=== PATIENT | female | born 1960 | race Caucasian/White ===

== ENCOUNTER 2019-10-21 15:38 | Emergency (ER) | payer OTHER, SELFPAY | END 2019-10-21 15:40 | disposition left against medical advice (07) | PROVIDERS: Emergency Provider Internal Medicine Hematology & Oncology | DX: Z53.21 Procedure and treatment not carried out due to patient leaving prior to being seen by health care provider (principal) | CPT/HCPCS: 99199 ==

== ENCOUNTER 2022-09-24 14:51 | Emergency (ER) | payer MEDICARE, SELFPAY ==
--- NOTE | ~2022-09-24 | XR_ITS ---
EXAMINATION: XR chest 2V DATE: 09/24/2022 15:14 INDICATION: Cough. TECHNIQUE: Frontal and lateral views of the chest were obtained. COMPARISON: Chest 2 views 08/02/2006 FINDINGS: There is mild scarring at the lung apices. No pleural effusion or pneumothorax. The heart s ize is normal. There are prominent paracardial fat pads. IMPRESSION: 1. Mild scarring at the lung apices. Reviewed, dictated and finalized at location A.
--- NOTE | 2022-09-24 14:56 | ED.URI ---
HPI - URI/Sore Throat General Chief Complaint: Upper Respiratory Infection Stated Complaint: Cough Source: patient and RN notes reviewed History of Present Illness HPI Narrative: 62 yo F presents to urgent care with complaints of cough, congestion, PERALTA, and intermittent sore throat for the last 3 days. Pt reports chills. States her cough is much worse at nighttime when she lies down. Denies any fevers, ear pain, vomiting, or chest pain. Pt is also reporting green stools for the last few days. Pt has taken Tylenol at home. Related Data Home Medications Medication Instructions Recorded Confirmed alprazolam 1 mg tablet 1 mg PO TID 04/24/19 09/24/22 dicyclomine 20 mg tablet 20 mg PO TID 04/24/19 09/24/22 aripiprazole 20 mg tablet 20 mg PO DAILY 09/24/22 09/24/22 atorvastatin 20 mg tablet 20 mg PO DAILY 09/24/22 09/24/22 bupropion HCl 300 mg 24 hr tablet, 300 mg PO DAILY 09/24/22 09/24/22 extended release lisinopril 10 mg tablet 10 mg PO DAILY 09/24/22 09/24/22 oxcarbazepine 150 mg tablet mg 09/24/22 Allergies Allergy/AdvReac Type Severity Reaction Status Date / Time vancomycin Allergy Unknown SWELLED Verified 09/24/22 15:01 UP tramadol AdvReac Unknown Itching Verified 09/24/22 15:01 Review of Systems Review of Systems: Pertinent positives and pertinent negatives per HPI. PMFSH Comments At the time of my signature, I reviewed and agree with the nursing past medical, surgical, social, and family history. There is no relevant family history pertinent to the patient complaint. Exam Narrative: GENERAL: This is a well-nourished, well-developed patient, in no apparent distress. HEAD: normocephalic, atraumatic. EYES: Sclera clear/white. Vision is grossly intact. EARS: External ears normal, auditory canals clear and without drainage, TMs normal without perforation. Hearing grossly intact. NOSE: External nose normal with no obvious nasal discharge, nares without redness, no rhinorrhea. THROAT: Mucous membranes moist, posterior pharynx clear. NECK: Neck supple, non-tender without lymphadenopathy, masses or thyromegaly. CARDIOVASCULAR: Regular rate and rhythm without murmurs, gallops, or rubs. RESPIRATORY: Mild rhonchi bilaterally. GASTROINTESTINAL: Abdomen soft, non-tender, nondistended. Bowel sounds are active. No hepato-splenomegaly, or palpable masses. No guarding. SKIN: warm, intact with no suspicious lesions or rash, good texture and turgor. NEURO: awake, alert, and oriented to person, place and time. There were no obvious focal neurologic abnormalities. Course Course Level of Care: Express Care Visit Vital Signs Vital signs: Vital Signs Temperature 97 F L 09/24/22 15:01 Pulse Rate 92 09/24/22 15:01 Respiratory Rate 18 09/24/22 15:01 Blood Pressure 159/76 H 09/24/22 15:01 Pulse Oximetry 98 09/24/22 15:01 Oxygen Delivery Room Air 09/24/22 15:01 Temperature 97 F L 09/24/22 15:05 Pulse Rate 92 09/24/22 15:05 Respiratory Rate 18 09/24/22 15:05 Blood Pressure 159/76 H 09/24/22 15:05 Pulse Oximetry 98 09/24/22 15:05 Oxygen Delivery Room Air 09/24/22 15:05 Reviewed MDM - URI/Sore Throat MDM Narrative Medical decision making narrative: Take steroids as directed. May use the inhaler every 4-6 hours as needed for coughing. Increase fluids at home. Avoid any and all smoke. May use a humidifier in the bedroom. Increase your Vitamin C. Follow-up with personal physician in 2-5 days. Differential Diagnosis Differential diagnosis: Likely upper respiratory infection, bronchitis and other (pna) Imaging Data Radiologist's impression: [place] [id number] [id number] XRay Report Signed Patient: Linda Cates : 1960 MR#: [id number] Age/Sex: 62 / F Acct:[id number] Loc: [facility]? ? ADM Date: 09/24/22Attending Dr: Ordering Physician: Elizabeth Kaur APRN Date of Service: 09/24/22
[2022-09-24 15:01] VITALS: BP 159/76; PULSE 92; RESP 18; TEMP 36.1; O2SAT 98
[2022-09-24 15:05] VITALS: BP 159/76; PULSE 92; RESP 18; TEMP 36.1; O2SAT 98
== END 2022-09-24 15:39 | disposition home or self-care (01) ==
PROVIDERS: Emergency Provider Nurse Practitioner Family; PCP Hospitalist
DX: J40 Bronchitis, not specified as acute or chronic (principal)
CPT/HCPCS: 71046; 99213; G0463

== ENCOUNTER 2023-02-26 12:54 | Emergency (ER) | payer MEDICARE, SELFPAY ==
[2023-02-26 13:01] VITALS: BP 134/93; PULSE 103; RESP 18; TEMP 36.6; O2SAT 96
--- NOTE | 2023-02-26 13:05 | ED.GENADULT ---
HPI - General Adult General Chief complaint: Extremity Injury, Upper Stated complaint: Right Shoulder Injury Time Seen by Provider: 02/26/23 13:05 Source: patient Mode of arrival: ambulatory Limitations: no limitations History of Present Illness HPI narrative: 63 yo F presents with C/o R shoulder pain for several days. Has tried ibuprofen, tylenol, ice and heat with no relief. Denies injury but states that she lifts a lot of things while cleaning at home . Pain worse with movement. No other complaints. Denies numbness/tingling, weakness. all systems reviewed and negative except as noted above. Related Data Home Medications Medication Instructions Recorded Confirmed alprazolam 1 mg tablet 1 mg PO TID 04/24/19 02/26/23 aripiprazole 20 mg tablet 20 mg PO DAILY 09/24/22 02/26/23 atorvastatin 20 mg tablet 20 mg PO DAILY 09/24/22 02/26/23 bupropion HCl 300 mg 24 hr tablet, 300 mg PO DAILY 09/24/22 02/26/23 extended release lisinopril 10 mg tablet 10 mg PO DAILY 09/24/22 02/26/23 oxcarbazepine 150 mg tablet 150 mg PO BID 09/24/22 02/26/23 ergocalciferol (vitamin D2) 1,250 1,250 mcg PO WEEKLY 02/26/23 02/26/23 mcg (50,000 unit) capsule Allergies Allergy/AdvReac Type Severity Reaction Status Date / Time vancomycin Allergy Unknown SWELLED Verified 02/26/23 13:06 UP tramadol AdvReac Unknown Itching Verified 02/26/23 13:06 Review of Systems Review of Systems: CONSTITUTIONAL: Denies fever, chills, or sweats. EYES: Denies visual changes, redness, or discharge. ENT: Denies rhinorrhea, congestion, sore throat, or otalgia. CARDIOVASCULAR: Denies chest pain, palpitations, or edema. RESPIRATORY: Denies cough or dyspnea. GASTROINTESTINAL: Denies abdominal pain, nausea, vomiting, or diarrhea. GENITOURINARY: Denies dysuria or hematuria. SKIN: Denies rash or itching. MUSCULOSKELETAL: Denies back pain or myalgia. Reports right shoulder pain. NEUROLOGIC: Denies headache, numbness, or weakness. PSYCHIATRIC: Denies anxiety or depression. All other systems reviewed are negative, except as documented in HPI. PMFSH Comments At time of signature, agree with nursing past medical, surgical, social and family history. There is no relevant family history pertinent to the presenting complaint. Exam Narrative: GENERAL: This is a well-nourished, well-developed patient, in no apparent distress. HEAD: normocephalic, atraumatic. EYES: PERRL. Sclera clear/white. Vision is grossly intact. EARS: External ears normal NOSE: External nose normal NECK: Neck supple, non-tender without lymphadenopathy, masses or thyromegaly. CARDIOVASCULAR: Regular rate and rhythm without murmurs, gallops, or rubs. RESPIRATORY: Clear to auscultation. Breath sounds equal bilaterally. No wheezes, rales, or rhonchi. SKIN: warm, Dry, intact with no suspicious lesions or rash, good texture and turgor. NEURO: awake, alert, and oriented to person, place and time. There were no obvious focal neurologic abnormalities. EXTREMITIES: No joint tenderness, effusion, or edema noted. normal ROM to R shoulder without tenderness. neg drop arm test. strength RUE 5/5 BACK: no midline tenderness. tenderness to R trapezius/rhomoboid. Course Course Level of Care: Express Care Visit Vital Signs Vital signs: Vital Signs Temperature 36.6 C 02/26/23 13:01 Pulse Rate 103 H 02/26/23 13:01 Respiratory Rate 18 02/26/23 13:01 Blood Pressure 134/93 H 02/26/23 13:01 Pulse Oximetry 96 02/26/23 13:01 Oxygen Delivery Room Air 02/26/23 13:01 Temperature 36.6 C 02/26/23 13:01 Pulse Rate 103 H 02/26/23 13:01 Respiratory Rate 18 02/26/23 13:01 Blood Pressure 134/93 H 02/26/23 13:01 Pulse Oximetry 96 02/26/23 13:01 Oxygen Delivery Room Air 02/26/23 13:01 Reviewed Medical Decision Making MDM Narrative Medical decision making narrative: Patient is aware of diagnosis, understands and agrees to treatment plan. Anticipatory guidance g
== END 2023-02-26 13:16 | disposition home or self-care (01) ==
PROVIDERS: Emergency Provider Nurse Practitioner Family; PCP Hospitalist
DX: S46.811A Strain of other muscles, fascia and tendons at shoulder and upper arm level, right arm, initial encounter (principal); X58.XXXA Exposure to other specified factors, initial encounter
CPT/HCPCS: 99213; G0463

== ENCOUNTER 2023-03-23 10:47 | Emergency (ER) | payer MEDICARE, SELFPAY ==
--- NOTE | ~2023-03-23 | XR_ITS ---
EXAMINATION: XR chest 2V DATE: 03/23/2023 11:37 INDICATION: Cough. Right posterior chest pain. TECHNIQUE: Frontal and lateral views of the chest were obtained. COMPARISON: Chest 2 views 09/24/2022 FINDINGS: There is mild atelectasis in right lower lung zone. No pleural effusion or pneumothorax. Th e heart size is normal. IMPRESSION: 1. Mild atelectasis in right lower lung zone. Reviewed, dictated and finalized at location A. [employer]
[2023-03-23 10:52] VITALS: BP 155/65; PULSE 91; RESP 20; TEMP 36.2; O2SAT 97
--- NOTE | 2023-03-23 10:54 | ED.BACK ---
HPI - Back Pain/Injury General Chief Complaint: Back Pain/Injury Stated Complaint: Back Pain Source: patient, RN notes reviewed and old records reviewed History of Present Illness HPI Narrative: 63 yo F presents to urgent care with complaints of bilateral mid and upper back pain since yesterday. Pt states the pain has progressed over the last day or so. Pt reports an ongoing cough which has progressed in severity recently. States worsening pain with deep inhalation or coughing. Denies any fevers, chills, chest pain, vomiting, or back injury. Denies any leg pain or swelling. Pt has been alternating ibuprofen and Tyelenol at home without relief. Related Data Home Medications Medication Instructions Recorded Confirmed alprazolam 1 mg tablet 1 mg PO TID 04/24/19 02/26/23 aripiprazole 20 mg tablet 20 mg PO DAILY 09/24/22 02/26/23 atorvastatin 20 mg tablet 20 mg PO DAILY 09/24/22 02/26/23 bupropion HCl 300 mg 24 hr tablet, 300 mg PO DAILY 09/24/22 02/26/23 extended release lisinopril 10 mg tablet 10 mg PO DAILY 09/24/22 02/26/23 oxcarbazepine 150 mg tablet 150 mg PO BID 09/24/22 02/26/23 ergocalciferol (vitamin D2) 1,250 1,250 mcg PO WEEKLY 02/26/23 02/26/23 mcg (50,000 unit) capsule Allergies Allergy/AdvReac Type Severity Reaction Status Date / Time vancomycin Allergy Unknown SWELLED Verified 02/26/23 13:06 UP tramadol AdvReac Unknown Itching Verified 02/26/23 13:06 Review of Systems Review of Systems: CONSTITUTIONAL: Denies fever, chills, or sweats. EYES: Denies visual changes, redness, or discharge. ENT: Denies otalgia and sore throat CARDIOVASCULAR: Denies chest pain, palpitations, or edema. RESPIRATORY: Denies dyspnea. GASTROINTESTINAL: Denies abdominal pain, nausea, vomiting, or diarrhea. GENITOURINARY: Denies dysuria or hematuria. SKIN: Denies rash or itching. NEUROLOGIC: Denies headache, numbness, or weakness. Pertinent positives per HPI. PMFSH Comments At the time of my signature, I reviewed and agree with the nursing past medical, surgical, social, and family history. There is no relevant family history pertinent to the patient complaint. Exam Narrative: GENERAL: This is a well-nourished, well-developed patient, in no apparent distress. HEAD: normocephalic, atraumatic. EYES: Sclera clear/white. Vision is grossly intact. EARS: External ears normal, auditory canals clear and without drainage, TMs normal without perforation. Hearing grossly intact. NOSE: External nose normal with no obvious nasal discharge, nares without redness, no rhinorrhea. THROAT: Mucous membranes moist, posterior pharynx clear. NECK: Neck supple, non-tender without lymphadenopathy, masses or thyromegaly. CARDIOVASCULAR: Regular rate and rhythm without murmurs, gallops, or rubs. RESPIRATORY: Clear to auscultation. Breath sounds equal bilaterally. No wheezes, rales, or rhonchi. GASTROINTESTINAL: Abdomen soft, non-tender, nondistended. Bowel sounds are active. No hepato-splenomegaly, or palpable masses. No guarding. SKIN: warm, intact with no suspicious lesions or rash, good texture and turgor. NEURO: awake, alert, and oriented to person, place and time. There were no obvious focal neurologic abnormalities. EXTREMITIES: No clubbing, cyanosis, or edema. No joint tenderness, effusion, or edema noted. BACK: Nontender without deformity or crepitus. No flank tenderness. Course Course Level of Care: Express Care Visit Vital Signs Vital signs: Vital Signs Temperature 97.2 F L 03/23/23 10:52 Pulse Rate 91 03/23/23 10:52 Respiratory Rate 20 03/23/23 10:52 Blood Pressure 155/65 H 03/23/23 10:52 Pulse Oximetry 97 03/23/23 10:52 Oxygen Delivery Room Air 03/23/23 10:52 Temperature 97.2 F L 03/23/23 10:52 Pulse Rate 91 03/23/23 10:52 Respiratory Rate 20 03/23/23 10:52 Blood Pressure 155/65 H 03/23/23 10:52 Pulse Oximetry 97 03/23/23 10:52 Oxygen Delivery Room Air 03/23/23 10:52 Rev
== END 2023-03-23 12:04 | disposition home or self-care (01) ==
PROVIDERS: Emergency Provider Nurse Practitioner Family; PCP Hospitalist
DX: S29.012A Strain of muscle and tendon of back wall of thorax, initial encounter (principal); X58.XXXA Exposure to other specified factors, initial encounter; I10 Essential (primary) hypertension; F41.9 Anxiety disorder, unspecified
CPT/HCPCS: 71046; 99213; G0463

== ENCOUNTER 2023-04-14 10:51 | Emergency (ER) | payer MEDICARE, SELFPAY ==
--- NOTE | 2023-04-14 10:57 | ED.URI ---
HPI - URI/Sore Throat General Chief Complaint: Upper Respiratory Infection Stated Complaint: cough/chest congestion pain Time Seen by Provider: 04/14/23 11:24 Source: patient and RN notes reviewed Mode of arrival: ambulatory Limitations: no limitations History of Present Illness HPI Narrative: 63-year-old female presents with concern for 2 day history of anterior chest pain, shortness of breath, dry cough. Reports pain radiates down her right arm. She reports shortness of breath with exertion. She reports chronic rhinorrhea. She denies fever, aches, chills, sweats. She reports symptoms are getting worse. MD elicited complaint: cough and other (Chest pain) Related Data Home Medications Medication Instructions Recorded Confirmed alprazolam 1 mg tablet 1 mg PO TID 04/24/19 02/26/23 aripiprazole 20 mg tablet 20 mg PO DAILY 09/24/22 02/26/23 atorvastatin 20 mg tablet 20 mg PO DAILY 09/24/22 02/26/23 bupropion HCl 300 mg 24 hr tablet, 300 mg PO DAILY 09/24/22 02/26/23 extended release lisinopril 10 mg tablet 10 mg PO DAILY 09/24/22 02/26/23 oxcarbazepine 150 mg tablet 150 mg PO BID 09/24/22 02/26/23 ergocalciferol (vitamin D2) 1,250 1,250 mcg PO WEEKLY 02/26/23 02/26/23 mcg (50,000 unit) capsule Allergies Allergy/AdvReac Type Severity Reaction Status Date / Time vancomycin Allergy Unknown SWELLED Verified 02/26/23 13:06 UP tramadol AdvReac Unknown Itching Verified 02/26/23 13:06 Review of Systems Review of Systems: CONSTITUTIONAL: Denies malaise, chills, sweats, or fever. EYES: Denies visual changes, redness, or discharge. ENT: Reports rhinorrhea. Denies congestion, sinus pain, otalgia and sore throat. CARDIOVASCULAR: Report chest pain. Denies palpitations, or edema. RESPIRATORY: Reports dry cough, dyspnea. GASTROINTESTINAL: Denies abdominal pain, vomiting, diarrhea. Reports nausea without vomiting SKIN: Denies rash or itching. MUSCULOSKELETAL: Denies myalgia. NEUROLOGIC: Denies headache. All systems reviewed & are unremarkable except as noted in HPI and below PMFSH Comments At time of signature, agree with nursing past medical, surgical, social and family history. There is no relevant family history pertinent to the presenting complaint Exam Narrative: GENERAL: Nontoxic-appearing, well-nourished, and in no acute distress. Appears uncomfortable HEAD: Normocephalic EYES: PERRLA, conjunctivae clear ENT: Nares clear. Mucous membranes moist NECK: Supple. No lymphadenopathy CHEST: Clear to auscultation, breath sounds equal. No wheezing, rhonchi, rales, or stridor. No respiratory distress, speaks in full sentences. HEART: Regular rate and rhythm. No murmur heard. SKIN: Warm, dry, no rash. NEURO: Alert and oriented x3. PSYCH: Normal mood and affect Course Course Emergency Course: Patient is aware of, understands and agrees to be transferred to the emergency room. Patient is refusing EMS transfer, reports she does not want the extra pill, reports her son will drive her in she will go straight there. She understands risks of not taking EMS transfer. Patient agrees to proceed directly to the emergency department. Portions of this record may have been created with voice recognition software Level of Care: Express Care Visit Vital Signs Vital signs: Reviewed. Transfer Transfered to: [facility]) Transportation: Other (private vehicle) Transfer rationale: Chest pain Accepting physician: Benito HASKINS - URI/Sore Throat [facility] Narrative Medical decision making narrative: Differential diagnosis considered: Acute MN, costochondritis, martin virus, strep pharyngitis, allergic rhinitis, upper respiratory tract infection, sinusitis, rhinosinusitis, nasopharyngitis. viral pharyngitis, otitis media, otitis externa, pneumonia, bronchitis, viral cough syndrome, viral syndrome, and influenza. Exam findings show no acute concerns or changes; patient is non-toxic appearing and is in no distress.
[2023-04-14 11:00] VITALS: BP 152/99; PULSE 92; RESP 18; TEMP 36.8; O2SAT 96
--- NOTE | 2023-04-14 11:27 | ECG_ITS ---
Measurements Intervals [place] Rate: 86 P: 77 OK: 163 QRS: -32 QRSD: 98 T: 75 QT: 364 QTc: 437 Interpretive Statements SINUS RHYTHM POSSIBLE BIATRIAL ENLARGEMENT LEFT AXIS DEVIATION INCOMPLETE RIGHT BUNDLE BRANCH BLOCK BORDERLINE ECG NO PREVIOUS ECG AVAILABLE FOR COMPARISON Electronically Signed On 04-14-2023 16:01:44 RECHECKER by Larry Estrada M.D.
== END 2023-04-14 11:39 | disposition short-term general hospital (02) ==
PROVIDERS: Emergency Provider Nurse Practitioner; PCP Hospitalist
DX: R07.9 Chest pain, unspecified (principal); I45.10 Unspecified right bundle-branch block; I10 Essential (primary) hypertension
CPT/HCPCS: 93005; 99213; G0463

== ENCOUNTER 2023-04-22 14:12 | Emergency (ER) | payer MEDICARE, SELFPAY ==
--- NOTE | 2023-04-22 14:15 | ED.URI ---
HPI - URI/Sore Throat General Chief Complaint: Upper Respiratory Infection Stated Complaint: congestion/cough/right lung pain Time Seen by Provider: 04/22/23 14:15 Source: patient Mode of arrival: ambulatory Limitations: no limitations History of Present Illness HPI Narrative: Patient is a 7-year-old female who presents with over 1 week of cough and congestion. Patient states she has chest wall pain with coughing due to frequent coughing fits. Patient was seen last week and was given steroids with no relief. Denies any fever, chills, nausea, vomiting, diarrhea. Related Data Home Medications Medication Instructions Recorded Confirmed alprazolam 1 mg tablet 1 mg PO TID 04/24/19 02/26/23 aripiprazole 20 mg tablet 20 mg PO DAILY 09/24/22 02/26/23 atorvastatin 20 mg tablet 20 mg PO DAILY 09/24/22 02/26/23 bupropion HCl 300 mg 24 hr tablet, 300 mg PO DAILY 09/24/22 04/22/23 extended release lisinopril 10 mg tablet 10 mg PO DAILY 09/24/22 02/26/23 oxcarbazepine 150 mg tablet 150 mg PO BID 09/24/22 02/26/23 ergocalciferol (vitamin D2) 1,250 1,250 mcg PO WEEKLY 02/26/23 02/26/23 mcg (50,000 unit) capsule Allergies Allergy/AdvReac Type Severity Reaction Status Date / Time vancomycin Allergy Unknown SWELLED Verified 04/22/23 14:29 UP tramadol AdvReac Unknown Itching Verified 04/22/23 14:29 Review of Systems Review of Systems: All systems reviewed & are unremarkable except as noted in HPI and below Constitutional: Constitutional: Denies body ache(s), Denies chills, Denies fatigue, Denies fever(s), Denies headache(s), Denies malaise and Denies weakness Eyes: Eyes: Denies blurry vision, Denies itchy eyes and Denies loss of vision ENT: Denies otalgia, Denies headache(s), Reports nasal congestion, Denies sinus pain and Denies sore throat Cardiovascular: Cardiovascular: Denies chest pain, Denies irregular heart rhythm and Denies dyspnea Respiratory: Respiratory: Reports cough and Denies dyspnea Gastrointestinal: Gastrointestinal: Denies abdominal pain, Denies diarrhea, Denies nausea and Denies vomiting Musculoskeletal: Musculoskeletal: Denies back pain, Denies myalgias and Denies arthralgias Integumentary/Breasts: Skin/Breast: Denies pruritus and Denies rash Neurologic: Denies headache(s), Denies loss of vision and Denies weakness Psychiatric: Psychiatric: Reports no additional psychiatric complaints Endocrine: Endocrine: Denies fatigue Allergic/Immunologic: Allergic/Immunologic: Denies itchy eyes PMFSH Comments At time of signature, agree with nursing past medical, surgical, social and family history. There is no relevant family history pertinent to the presenting complaint. Exam Const: General: cooperative, healthy appearing, comfortable, no acute distress and well nourished Nutritional Appearance: well nourished Orientation/consciousness: patient oriented x3 Limitations: no limitations HENMT: Head: normal to inspection, normocephalic and atraumatic Ears: hearing grossly normal bilaterally, external ears normal, TM's normal bilaterally, EAC's normal and no periauricular adenopathy Face/Nose/Sinus: Normal external nose present, Abnormal mucous membranes and turbinates present erythematous bilateral and diffuse, normal facial exam, sinuses nontender and face symmetric Face and sinus: normal facial exam, sinuses nontender and face symmetric Mouth: Yes Normal oral and palatal mucosa present, Yes lip normal, Yes tongue normal, Yes Normal salivary glands and ducts present, Yes oropharynx normal and Yes moist mucous membranes Teeth and gingiva: dentition normal Throat: posterior oropharynx normal, tonsils normal and uvula midline Eyes: General: appearance normal, both eyes and all related structures Alignment and Position: alignment normal and position normal Periorbital: periorbital findings normal Eyelids: eyelids normal Pupils: Equal, round and reactive pupils present Neck: Neck: normal visual inspecti
[2023-04-22 14:17] VITALS: PULSE 95; RESP 20; TEMP 36.7; O2SAT 97
[2023-04-22 14:53] VITALS: BP 145/90
== END 2023-04-22 15:05 | disposition home or self-care (01) ==
PROVIDERS: Emergency Provider Nurse Practitioner Family; PCP Hospitalist
DX: J06.9 Acute upper respiratory infection, unspecified (principal); Z79.899 Other long term (current) drug therapy
CPT/HCPCS: 99213; G0463

== ENCOUNTER 2024-05-10 16:07 | Emergency (ER) | payer MEDICARE, SELFPAY ==
--- NOTE | ~2024-05-10 | XR_ITS ---
3 VIEWS LUMBAR SPINE Ordering provider: Ashly Garza NP History: . MIDLINE LBP AFTER FALL BACKWARDS . Comparison: April 07, 2019 FINDINGS: VERTEBRAL BODIES: No visible fracture or subluxation. . Degenerative changes of the spine. DISK SPACES: Narrowing of the disc L1-L2. Multilevel facet joint disease. SOFT TISSUES: Atherosclerotic changes of the aorta. IMPRESSION: No acute osseous abnormality lumbar spine. Degenerative disc disease at the level of L1-L2. Reviewed, dictated and finalized at location A. 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 Degenerative disc disease at the lev el of L1-L2.
[2024-05-10 16:17] VITALS: BP 146/55; PULSE 80; RESP 18; TEMP 36.1; O2SAT 97
--- NOTE | 2024-05-10 16:37 | ED.URI ---
HPI - URI/Sore Throat General Chief Complaint: Upper Respiratory Infection Stated Complaint: Fatigue/Sore Throat/Nausea/Fall Injury/Back Time Seen by Provider: 05/10/24 16:37 Source: patient Mode of arrival: ambulatory Limitations: no limitations History of Present Illness HPI Narrative: 64 yo F presents with c/o nasal congestion, headache, sinus pressure, PND, sore throat, cough for approx. 10 days. AFebrile. Also having low backpain starting yesterday. Picked up case of water at [employer] [facility] and legs went out from under her and fell backwards hitting low back. ambulatory with steady gait. no loss or bowel or bladder. taking ibuprofen and tylenol to treat pain. All systems reviewed and negative except as noted above. Related Data Home Medications ?Medication ?Instructions ?Recorded ?Confirmed ?Last Taken ?Type alprazolam 1 mg tablet 1 mg PO TID 04/24/19 04/22/23 Unknown History aripiprazole 20 mg tablet 20 mg PO DAILY 09/24/22 04/22/23 Unknown History atorvastatin 20 mg tablet 20 mg PO DAILY 09/24/22 04/22/23 Unknown History bupropion HCl 300 mg 24 hr tablet, 300 mg PO DAILY 09/24/22 04/22/23 Unknown History extended release lisinopril 10 mg tablet 20 mg PO DAILY 09/24/22 04/22/23 Unknown History ergocalciferol (vitamin D2) 1,250 1,250 mcg PO WEEKLY 02/26/23 04/22/23 Unknown History mcg (50,000 unit) capsule ramelteon 8 mg tablet 8 mg PO DAILY 04/22/23 04/22/23 Unknown History trazodone 100 mg tablet 100 mg PO BID 04/22/23 04/22/23 Unknown History Allergies Allergy/AdvReac Type Severity Reaction Status Date / Time vancomycin Allergy Unknown SWELLED Verified 04/22/23 14:29 UP tramadol AdvReac Unknown Itching Verified 04/22/23 14:29 Review of Systems Review of Systems: CONSTITUTIONAL: Denies fever, chills, or sweats. EYES: Denies visual changes, redness, or discharge. ENT: reports rhinorrhea, congestion, sore throat, sinus congestion and pressure. Denies otalgia. CARDIOVASCULAR: Denies chest pain, palpitations, or edema. RESPIRATORY: reports cough. Denies dyspnea. GASTROINTESTINAL: Denies abdominal pain, nausea, vomiting, or diarrhea. GENITOURINARY: Denies dysuria or hematuria. SKIN: Denies rash or itching. MUSCULOSKELETAL: Reports low back pain. Denies joint pain, or myalgia. NEUROLOGIC: Denies headache, numbness, or weakness. PSYCHIATRIC: Denies anxiety or depression. All other systems reviewed are negative, except as documented in HPI. PMFSH Comments At time of signature, agree with nursing past medical, surgical, social and family history. There is no relevant family history pertinent to the presenting complaint. Exam Narrative: GENERAL: This is a well-nourished, well-developed patient, in no apparent distress. HEAD: normocephalic, atraumatic. EYES: PERRL. Sclera clear/white. Vision is grossly intact. EARS: External ears normal, auditory canals clear and without drainage, TMs normal without perforation. Hearing grossly intact. NOSE: External nose normal with moderate congestion, purulent nasal drainage, erythema and swelling to bilateral nares. Frontal maxillary sinus tenderness on palpation. THROAT: Mucous membranes moist, Erythematous with postnasal drainage NECK: Neck supple, non-tender without lymphadenopathy, masses or thyromegaly. CARDIOVASCULAR: Regular rate and rhythm without murmurs, gallops, or rubs. RESPIRATORY: Clear to auscultation. Breath sounds equal bilaterally. No wheezes, rales, or rhonchi. SKIN: warm, Dry, intact with no suspicious lesions or rash, good texture and turgor. NEURO: awake, alert, and oriented to person, place and time. There were no obvious focal neurologic abnormalities. EXTREMITIES: No joint tenderness, effusion, or edema noted. BACK: tenderness L3-L5, no deformity, generalized muscular tenderness, spasm Course Course Level of Care: Express Care Visit Vital Signs Vital signs: Vital Signs Temperature 36.1 C L 05/10/24 16:17 Pulse Rate 80 05/10/24 16:17 Respiratory Rate 18 05/10/24 16:17 Blood Pressure 146/55 H 05/10/24 16:17 Pulse Oximetry 97 05/10/24 16:17 Oxygen Delivery Room Air 05/10/24 16:17 Temperature 36.1 C L 05/10/24 16:17 Pulse Rate 80 05/10/24 16:17 Respiratory Rate 18 05/10/24 16:17 Blood Pressure 146/55 H 05/10/24 16:17 Pulse Oximetry 97 05/10/24 16:17 Oxygen Delivery Room Air 05/10/24 16:17 reviewed MDM - URI/Sore Throat MDM Narrative Medical decision making narrative: x-ray lumbar spine negative for fracture. Prescribe Robaxin for muscle spasm. Recommend ibuprofen and Tylenol to treat pain. Recommend ice and heat. Will treat For bacterial sinusitis due to duration of symptoms and exam findings. Lungs clear to auscultation. No respiratory distress noted. Patient is aware of diagnosis, understands and agrees to treatment plan. Anticipatory guidance given. Patient agrees to follow-up as directed and is aware of reasons to seek care at the emergency department. Portions of this record may have been created with voice recognition software Differential Diagnosis Differential diagnosis: Likely upper respiratory infection, sinusitis, viral infection and bronchitis Imaging Data My impression: agree with radiologist Radiologist's impression: 3 VIEWS LUMBAR SPINE Ordering provider: Ashly Garza NP History: . MIDLINE LBP AFTER FALL BACKWARDS . Comparison: April 07, 2019 FINDINGS: VERTEBRAL BODIES: No visible fracture or subluxation. . Degenerative changes of the spine. DISK SPACES: Narrowing of the disc L1-L2. Multilevel facet joint disease. SOFT TISSUES: Atherosclerotic changes of the aorta. IMPRESSION: No acute osseous abnormality lumbar spine. Degenerative disc disease at the level of L1-L2. Discharge Plan Discharge Clinical Impression: Acute bacterial sinusitis, Strain of lumbar region Patient Disposition: Home, Self-Care Condition: Stable Instructions: Antibiotic Form, Sinusitis (ED), Low Back Strain (ED) Additional Instructions: the x-ray of your lumbar spine was negative for fracture. Take medications as prescribed. Methocarbamol is a muscle relaxant may make you drowsy. Do not drive while taking this medication. Alternate between Tylenol and ibuprofen every 4 hours to treat back pain. Alternate between ice and heat. Do light stretching exercises as tolerated. Follow-up with your primary care physician if symptoms are not improving. Patient Language: Macedonian Prescriptions: New benzonatate 200 mg capsule 200 mg PO TID PRN (Reason: cough) Qty: 20 0RF doxycycline hyclate 100 mg capsule 100 mg PO BID 7 Days Qty: 14 0RF prednisone 20 mg tablet 40 mg PO DAILY 5 Days Qty: 10 0RF methocarbamol 750 mg tablet 750 mg PO Q8H PRN (Reason: muscle pain/spasm) Qty: 30 0RF fluticasone propionate [Flonase Allergy Relief] 50 mcg/actuation spray,suspension 1 spray intranasal BID Qty: 16 0RF Rx Instructions: administer into each nostril No Action alprazolam 1 mg Tablet 1 mg PO TID ramelteon 8 mg tablet 8 mg PO DAILY trazodone 100 mg tablet 100 mg PO BID atorvastatin 20 mg tablet 20 mg PO DAILY aripiprazole 20 mg tablet 20 mg PO DAILY bupropion HCl 300 mg tablet extended release 24 hr 300 mg PO DAILY lisinopril 10 mg tablet 20 mg PO DAILY ergocalciferol (vitamin D2) 1,250 mcg (50,000 unit) capsule 1,250 mcg PO WEEKLY Follow-up/Referrals: Grzegorz,MD Martell [Primary Care Provider] - Time of Disposition: 17:23
== END 2024-05-10 17:27 | disposition home or self-care (01) ==
PROVIDERS: Emergency Provider Nurse Practitioner Family; PCP Hospitalist
DX: J01.90 Acute sinusitis, unspecified (principal); S39.012A Strain of muscle, fascia and tendon of lower back, initial encounter; W19.XXXA Unspecified fall, initial encounter
CPT/HCPCS: 72100; 99213; G0463

== ENCOUNTER 2024-07-30 13:42 | Emergency (ER) | payer MEDICARE, SELFPAY ==
--- OUTSIDE RECORDS SUMMARY | 2024-07-30 13:44 | XMS_ITS | Clinical Summary ---
Author Organization [facility] Address [address] [place] [address] Phone Care Team Providers Care Flood Control Engineer Name Role Phone Martell Lantigua MD Primary Care Provider [phone] Allergies Active Allergy Reactions Criticality Noted Date Comments Tramadol Other (see Comments) High 09/21/2018 wired and itchy Acetaminophen-Codeine Itching 02/13/2019 Vancomycin Itching,Swelling High 04/05/2012 Face, mouth Medications ALPRAZolam (XANAX) 1 MG Tablet TAKE ONE TABLET BY MOUTH THREE TIMES A DAY NEEDED ANXIETY PL DO NOT FILL BEFORE 3 15 19 1 9 Active venlafaxine (EFFEXOR) 75 MG Tablet TAKE ONE TABLET BY MOUTH TWO TIMES A DAY 3 9 Active dilTIAZem (CARDIZEM CD) 180 MG CAPSULE SR 24 HR TAKE ONE CAPSULE BY MOUTH DAILY 1 9 Active levothyroxine (SYNTHROID) 25 MCG Tablet Take 25 mcg by mouth daily. 3 9 Active dicyclomine (BENTYL) 20 MG Tablet Take 20 mg by mouth 3 times daily as needed. 8 Active QUEtiapine Fumarate 300 MG Tablet Take 300 mg by mouth daily. 8 Active naloxone HCl (Narcan) 4 MG/0.1ML Liquid 1 [place] by Nasal route as needed for Opioid Reversal (opioid overdose). administer for symptoms of overdose (severe sleepiness, breathing problems, not responsive). Call 911. May use additional dose to repeat 1 spray intranasally in 2-3 minutes if needed. 2 Each 3 Active ibuprofen (MOTRIN) 600 MG Tablet Take 1 Tablet by mouth every 8 hours. 30 Tablet 3 Active Active Problems No known active problems Immunizations Immunization Administration Dates Next Due Influenza Vaccine 01/02/2019 Family History Medical History Relation Name Comments Bladder cancer Father Breast Cancer Maternal Cousin Heart Disease Maternal Grandfather Dementia Mother Hypertension Mother Heart Disease Paternal Grandfather Leukemia/Lymphoma Paternal Grandfather Relation Name Status Comments Father Maternal Cousin Maternal Grandfather Mother Alive Paternal Grandfather Social History Tobacco Use Types Packs/Day Years Used Date Smoking Tobacco: Every Day Cigarettes 0.5 40 Smokeless Tobacco: Never Tobacco Cessation:Ready to Q uit: Yes Alcohol Use Standard Drinks/Week Comments Not Currently 0 (1 standard drink = 0.6 oz pur e alcohol) Comments No Sex and Gender Information Value Date Recorded Sex Assigned at Not on file Legal Sex Female 10:33 PM CDT Gender Identity Not on file Sexual Orientation Not on file Last Filed Vital Signs Vital Sign Reading Time Taken Comments Blood Pressure 132/96 05/13/2023 8:28 AM SCHOOL LIBRARIAN Pulse 92 05/13/2023 8:28 AM SCHOOL LIBRARIAN Temperature 36.2 C (97.1 F) 05/13/2023 8:28 AM SCHOOL LIBRARIAN Respiratory Rate 16 05/13/2023 8:28 AM SCHOOL LIBRARIAN Oxygen Saturation 97% 05/13/2023 8:28 AM SCHOOL LIBRARIAN Inhaled Oxygen Concentration - - Weight 122.5 kg (270 lb) 05/13/2023 8:28 AM SCHOOL LIBRARIAN Height 175.3 cm (5' 9 ) 05/13/2023 8:28 AM SCHOOL LIBRARIAN Body Mass Index 39.87 05/13/2023 8:28 AM SCHOOL LIBRARIAN Plan of Treatment Health Maintenance Due Date Last Done Comments Hepatitis C Virus (HCV) Screening 1961 TdaP Immunization 1961 Pneumococcal Immunization (5 0+ years) (1 of 2 - PCV) 01/07/1980 Pap Smear 1982 Cervical Cancer Screening (CCS) 1991 HPV/Cotest 1991 Colonoscopy 2006 Colorectal Cancer Screening 2006 Cologuard 2011 Immunochemical Fecal Occult Blood 2011 Zoster Immunization (1 of 2) 2011 Mammogram 02/05/2021 02/06/2020, 07/06/2018 Influenza Immunization (#1) 12/26/202312/26, 02/05/2020, 01/02/2019 SARS-COV-2 Immunization ( - 2023-25 season) 2023 Respiratory Syncytial Virus (RSV) Immunization (Adult) (1 - 1-dose 75+ series) 01/07/2036 Hepatitis B Immunization Aged Out No longer eligible based on patient's age to complete this topic Meningococcal Immunization (ACWY) Aged Out No longer eligible b ased on patient's age to complete this topic Rotavirus Immunization Aged Out No lo nger eligible based on patient's age to complete this topic Procedures Procedure Name Priority Date/Time Associated Diagnosis Comments [facility] SCREENING BILATERAL DIGITAL W CAD Routine 07/06/2018 3:52 PM CDT Encounter for screening mammogram for malignant neoplasm of breast from Last 3 Months or Most Recently Relevant to Health Maintenance Results * IMAN SCREENING BILATERAL DIGITAL W CAD (07/06/2018 3:52 PM CDT) Anatomical Region Laterality Modality breast Bilateral Mammography 07/06/2018 3:21 PM CDT Narrative 07/06/2018 5:02 PM CDT - IMAN SCREENING BILATERAL DIGITAL W CAD BILATERAL DIGITAL SCREENING MAMMOGRAM WITH CAD WITH MEDIOLATERAL OBLIQUE CRANIOCAUDAL: 07/06/2018 The study was acquired using digital technology and interpreted from soft copy. Current study was also evaluated with ICAD version 7.2. CLINICAL: Routine screening. Patient has no complaints. No personal history of cancer. Maternal cousin had breast cancer. COMPARISONS: Comparison is made to exams dated: 07/01/2011, 06/15/2011, 06/02/2011, and 10/21/2010 [facility]. BREAST TISSUE:The tissue of both breasts is predominantly fatty. FINDINGS: There are stable benign appearing masses in both breasts. No significant masses, calcifications, or other findings are seen in either breast. There has been no significant interval change. IMPRESSION: BI-RAD 2 BENIGN There is no mammographic evidence of malignancy. A 1 year screening mammogram is recommended. The patient has been or will be contacted. The patient will be entered into a reminder system with a target due date of 1 year for her next screening exam. Electronically signed by: Donaldo Fields M.D. mmd/:07/06/2018 16:05:24 Freight Handler: Bailey Piper(Romi)(Lemuel), [facility] letter sent: Normal Exam Reading location: [facility] BI-RADS: 2 Benign Procedure Note Donaldo Fields MD - 07/06/2018 - IMAN SCREENING BILATERAL DIGITAL W CAD BILATERAL DIGITAL SCREENING MAMMOGRAM WITH CAD WITH MEDIOLATERAL OBLIQUE CRANIOCAUDAL: 07/06/2018 The study was acquired using digital technology and interpreted from soft copy. Current study was also evaluated with ICAD version 7.2. CLINICAL: Routine screening. Patient has no complaints. No personal history of cancer. Maternal cousin had breast cancer. COMPARISONS: Comparison is made to exams dated: 07/01/2011, 06/15/2011, 06/02/2011, and 10/21/2010 [facility]. BREAST TISSUE:The tissue of both breasts is predominantly fatty. FINDINGS: There are stable benign appearing masses in both breasts. No significant masses, calcifications, or other findings are seen in either breast. There has been no significant interval change. IMPRESSION: BI-RAD 2 BENIGN There is no mammographic evidence of malignancy. A 1 year screening mammogram is recommended. The patient has been or will be contacted. The patient will be entered into a reminder system with a target due date of 1 year for her next screening exam. Electronically signed by: Donaldo Fields M.D. mmd/:07/06/2018 16:05:24 Freight Handler: Bailey Piper(Romi)(M), [facility] letter sent: Normal Exam Reading location: [facility] BI-RADS: 2 Benign Brittany Watkins APRN, JAISON IMG MAMMO ORDERABLES Fin al Result from Last 3 Months or Most Recently Relevant to Health Maintenance Insurance MEDICARE C [facility] Care Teams Flood Control Engineer Relationship Specialty Start Date End Date Martell Lantigua MD [address] [place] [address] PCP - General Family Medicine 03/25/23
--- OUTSIDE RECORDS SUMMARY | 2024-07-30 13:45 | XMS_ITS | Referral Summary ---
Author Organization [facility] Address [address] [place] [address] Care Team Providers Care Repairer And Checker Name Role Phone Martell Chino MD Primary Care Provider [phone] Encounters Date Type Department Care Team Description 06/09/2024 10:15 AM MANAGER PLAN Telemedicine [facility] [id number] [phone] Maicol Dee MD Bipolar affective disorder, currently depressed, moderate (HCC) (Primary Dx); Generalized anxiety disorder 06/06/2024 Telephone [facility] [id number] [address] Maicol Dee MD 06/06/2024 1:00 PM MANAGER PLAN Office Visit [facility] Primary Care at [address] [place] [phone] Krissy Noble NP Acute cough (Primary Dx); Nausea; Weakness; Primary hypertension; Centrilobular emphysema (HCC); Generalized anxiety disorder; Hyperlipidemia, unspecified hyperlipidemia type; Bipolar affective disorder, currently depressed, moderate (HCC); Morbid obesity with BMI of 40.0-44.9, adult (HCC) 06/01/2024 Telephone [facility] Care [address] [address] Amelia Hernández MA Unsuccessful Phone Call 1 ([facility]) 05/25/2024 11:30 AM MANAGER PLAN Telemedicine [facility] Care [address] [place] [phone] Shruthi Christine MD Acute cough (Primary Dx) 05/25/2024 Nurse Triage [facility] [address] [phone] Vandana Mina, ANGEL 05/25/2024 Telephone [facility] [address] [phone] Martell Chino MD Symptom Based Call 05/15/2024 Telephone [facility] [address] [place] [address] Martell Chino MD Symptom Based Call 05/10/2024 Orders Only [facility] [address] [place] [id number] Martell Chino MD from Last 3 Months Allergies Active Allergy Reactions Criticality Noted Date Comments Acetaminophen-Codeine Itching Low 02/13/2019 Tramadol Other (See comments) High 09/21/2018 wired and itchy Vancomycin Swelling Medium Body swelling (2 months of picc lines and vanc) Medications acetaminophen (TYLENOL) 325 mg tablet Take 2 tablets (650 mg total) by mouth every 6 (six) hours as needed for pain Active albuterol HFA (PROVENTIL HFA,VENTOLIN HFA,PROAIR HFA) 90 mcg/actuation inhalerIndicatio ns:Viral upper respiratory tract infection with cough USE TWO (2) PUFF(S) EVERY FOUR (4) HOURS NEEDED WHEEZING OR SHORTNESS OF BREATH 8.5 g 3 3 Active cyanocobalamin (Vitamin B-12) 1,000 mcg/mL injection Inject 1,000 mcg as directed every 14 (fourteen) days 3 mL 1 3 Active Additional Information Patient not taking.Reported on 04/14/2024 naltrexone (DEPADE) 50 mg tabletIndication s:Impulse Control Disorder Take 1 tablet (50 mg total) by mouth daily 30 tablet 2 3 Active Additional Information Patient not taking.Reported on 04/14/2024 naloxone (NARCAN) 4 mg/actuation spray,non-aeroso l Administer 1 spray into affected nostril(s) as needed for opioid reversal or respiratory depression Call 911. Administer a single spray in one nostril. Repeat every 3 minutes as needed if no or minimal response. 2 each 4 Active Additional Information Patient not taking.Reported on 04/14/2024 lisinopriL (PRINIVIL,ZESTRI L) 10 mg tablet TAKE TWO (2) TABLETS (20 MG TOTAL) BY MOUTH DAILY 180 tablet 3 4 Active OXcarbazepine (TRILEPTAL) 600 mg tablet TAKE ONE (1) TABLET BY MOUTH TWICE DAILY 60 tablet 2 4 Active Additional Information Patient not taking.Reported on 04/14/2024 suvorexant (BELSOMRA) 10 mg tabletIndication s:Insomnia Take 1 tablet (10 mg total) by mouth nightly as needed (insomnia) 30 tablet 2 4 Active Trelegy Ellipta 100-62.5-25 mcg inhaler USE ONE (1) PUFF(S) DAILY BY INHALATION ROUTE 60 each 2 4 Active dilTIAZem XR (dilTIAZem CD) 240 mg 24 hr capsule Take 1 capsule (240 mg total) by mouth daily 90 capsule 3 4 04/14/20 25 Active hydroCHLOROthiaz richy 12.5 mg tablet Take 1 tablet (12.5 mg total) by mouth daily 90 tablet 3 4 04/14/20 25 Active ergocalciferol (VITAMIN D) 50,000 unit capsule Take 1 capsule (50,000 Units total) by mouth once a week 12 capsule 3 4 04/17/20 25 Active buPROPion XL (WELLBUTRIN XL) 300 mg 24 hr tabletIndication s:Depression associated with Bipolar Disorder TAKE 1 TABLET (300 MG TOTAL) BY MOUTH EVERY MORNING 30 tablet 2 5 Active atorvastatin (LIPITOR) 20 mg tablet TAKE ONE (1) TABLET (20 MG TOTAL) BY MOUTH DAILY 30 tablet 5 5 Active methocarbamoL (ROBAXIN) 750 mg tablet 1 tablet (750 mg total) 5 Active fluticasone propionate (FLONASE) 50 mcg/actuation nasal spray 2 sprays 5 Active doxycycline hyclate 100 mg capsule 1 tablet/capsule (100 mg total) 5 Active ARIPiprazole (ABILIFY) 20 mg tablet TAKE ONE (1) TABLET (20 MG TOTAL) BY MOUTH DAILY 90 tablet 5 Active celecoxib (CeleBREX) 200 mg capsule TAKE 1 CAPSULE (200 MG TOTAL) BY MOUTH TWO (2) (TWO) TIMES a DAY 60 capsule 5 Active ondansetron (ZOFRAN) 4 mg tablet 1 tablet (4 mg total) 5 Active benzonatate (TESSALON) 100 mg capsuleIndicatio ns:Cough Take 1 capsule (100 mg total) by mouth 3 (three) times a day as needed for cough 30 capsule 5 Active hydrOXYzine (ATARAX) 25 mg tabletIndication s:anxiety TAKE 1 TABLET (25 MG TOTAL) BY MOUTH EVERY 8 (EIGHT) HOURS NEEDED FOR ANXIETY 60 tablet 2 5 Active ALPRAZolam (XANAX) 1 mg tablet TAKE 1 TABLET (1 MG TOTAL) BY MOUTH THREE (3) TIMES a DAY NEEDED FOR ANXIETY 90 tablet 2 5 Active Active Problems Problem Noted Date Diagnosed Date Acute cough 06/06/2024 Nausea 06/06/2024 Weakness 06/06/2024 Hyperlipidemia 06/06/2024 Shortness of breath 04/14/2024 Palpitations 04/14/2024 Chest pain 04/14/2024 Fatigue 04/14/2024 Vitamin D deficiency 04/14/2024 Screening for lipid disorders 04/14/2024 Screening for diabetes mellitus 04/14/2024 Screening for lung cancer 04/14/2024 Need for hepatitis B screening test 04/14/2024 Morbid obesity with BMI of 40.0-44.9, adult 03/27 Assessment & Plan (06/06/2024 7:35 PM MANAGER PLAN): BMI 41.78. Patient did not wish to discuss diet and exercise. Assessment & Plan (04/14/2024 3:59 PM MANAGER PLAN): BMI 42.40. Discussed making dietary changes, trying to make healthier food choices including portion control. Encourage moderate intensity exercise 30 minutes 5 days per week. Recommend weight loss Left wrist tendonitis 06/29/2023 Assessment & Plan (06/29/2023 3:11 PM MANAGER PLAN): Not well controlled; continues to have significant pain, limitations with using wrist; unclear specific cause, multiple evidence of inflammation of tendons in MRI Patient follow-up with hand surgery for further evaluation and management Will start Celebrex 200 mg b.i.d., hydrocodone 5 mg p.r.n. for severe pain Chronic allergic rhinitis 08/26/2021 Assessment & Plan (08/26/2021 3:43 PM CDT): Patient continues to have significant drainage;, may relate to vertigo as well as sensation of feeling weak and tired Will start Astelin nasal spray in order to help with nasal congestion; continue Flonase and Claritin 10 mg daily Vertigo 08/26/2021 Assessment & Plan (01/29/2022 4:31 PM CDT): Continues to have symptoms, cannot reach above head, also has symptoms when standing for too long duration Encouraged patient continue to work on regular exercise and activity If persist, will consider further evaluation for the cause of vertigo Assessment & Plan (08/26/2021 3:44 PM CDT): Unclear etiology; may be secondary to chronic sinusitis verses benign positional vertigo given symptoms can also occur with turning of head or standing up from sulfa As patient also reports symptoms occur when eating arms above head, partial concern for thoracic outlet syndrome Will continue to monitor and evaluate neck steps and testing evaluation Generalized anxiety disorder 05/14/2021 Assessment & Plan (06/06/2024 7:37 PM MANAGER PLAN): Stable. She has an appointment with her psychiatrist on 06/09/2024. Assessment & Plan (01/29/2022 4:28 PM CDT): Not well controlled, recently feeling exhausted, due to caring for elderly mother; reports progress station and doing less activity, unclear if related to anxiety and bipolar disorder exacerbation verses other causes Encouraged patient continue to work on self-care as well as setting boundaries Patient continues to engage with individual counseling Continue medications per Psychiatry Xanax 1 mg t.i.d., Abilify 20 mg daily, bupropion 150 mg daily Assessment & Plan (10/03/2021 4:07 PM CDT): Not well controlled, patient reports multiple stressors, including sick mother who recently had subdural hematoma, not requiring 247 care Patient reports some stressors relating for ensuring duties with sister and brother caring for mother Encouraged patient to engage with counseling in order to better adjust thoughts regarding situations Centrilobular emphysema 12/27/2020 Assessment & Plan (06/06/2024 7:35 PM MANAGER PLAN): She does have her albuterol HFA inhaler for p.r.n. use and has not used it recently. Assessment & Plan (06/29/2023 3:11 PM MANAGER PLAN): Stable, well controlled, breathing is improved; patient has cut back on smoking, no longer using Trelegy Ellipta; continue albuterol p.r.n. Assessment & Plan (01/29/2022 4:32 PM CDT): Stable, well controlled; patient reports minimal dyspnea Continue Trelegy Ellipta 1 puff daily Assessment & Plan (10/03/2021 4:07 PM CDT): Stable, well controlled; continue Trelegy Ellipta 1 puff daily, albuterol p.r.n. Assessment & Plan (04/01/2021 4:10 PM MANAGER PLAN): Stable, well controlled; continue albuterol p.r.n., Trelegy Ellipta 1 puff daily Assessment & Plan (12/27/2020 3:56 PM CDT): Stable; continue Trelegy Ellipta daily Moderate tobacco use disorder 07/30/2020 Assessment & Plan (04/14/2024 3:56 PM MANAGER PLAN): Patient has been reducing the amount she smokes with a goal of quitting on 04/26/2024. Encouraged smoking cessation. Assessment & Plan (06/29/2023 3:11 PM MANAGER PLAN): Stable, improving, down to 2 cigarettes per day; encouraged continued work towards complete cessation Assessment & Plan (01/29/2022 4:32 PM CDT): Recently worsened due to stress; currently smoking about 6 cigarettes per day Patient wants to defer working on smoking cessation at this time Assessment & Plan (10/03/2021 4:08 PM CDT): Stable, improving; patient reports she is down to approximately 3 cigarettes per day Patient reports she only smokes around certain situations, or with high stress Encouraged patient continue to look at ways to continue to lower tobacco use Assessment & Plan (04/01/2021 4:10 PM MANAGER PLAN): Continues to smoke regularly; encouraged discontinuation Assessment & Plan (12/27/2020 3:55 PM CDT): Continue smoking 6-7 cigarettes per day, trying to reduce but has high levels of stress Assessment & Plan (11/26/2020 1:10 PM CDT): Improving, patient is smoking approximately 3 cigarettes per day encouraged continue work ports cessation Assessment & Plan (11/04/2020 2:32 PM CDT): Improving, patient down to 3 cigarettes per day continues to work on smoking cessation Assessment & Plan (09/18/2020 4:17 PM CDT): Improving, patient is trying to smoke less per day, down to about 5 cigarettes per day Continue to encourage full cessation Assessment & Plan (08/13/2020 9:47 AM CDT): The patient has decreased significantly but I have encouraged her to completely stop prior to surgery to decrease the risks of blood clots as well as anastomotic leak. Assessment & Plan (07/30/2020 3:25 PM CDT): Improving, patient is down to 4-5 cigarettes per day, encourage continued cessation, given psychiatric medications will avoid Zyban, may consider Chantix at future date. TMJ (temporomandibular joint syndrome) 0 Syncope and collapse 02/22/2020 Assessment & Plan (02/29/2020 11:43 AM MANAGER PLAN): Improving, no evidence of cardiac or vascular source of syncope Believed to be related to high levels of stress and anxiety at home Continue to monitor encouraged patient to follow-up with psychiatrist and psychologist for continued medical management bipolar disorder, anxiety and possible somatic symptoms of both Assessment & Plan (02/22/2020 3:10 PM CDT): Presented after having 3 episodes of syncope and collapse, with no presyncopal symptoms each time. CT head without acute changes. EKG did not show any heart blocks or arrhythmias. Cardiology consutled. Orthostatic vital signs were negative. Echocardiogram did not show aortic stenosis, EF was normal, no structural heart disease. US carotids showed < 50% stenosis of the internal carotid arteries. Will continue telemetry for today. Planned to discharge patient with 30 day monitor. If it does not citrus picker anything then cardiology recommends to implant loop recorder in the near future. Advised to avoid dangerous activities like driving, climbing, swimming until this is resolved. HTN (hypertension) 02/22/2020 Assessment & Plan (06/06/2024 7:36 PM MANAGER PLAN): BP 138/88, stable despite being off of her blood pressure medications for several weeks. Assessment & Plan (06/29/2023 3:09 PM MANAGER PLAN): Stable, well controlled, blood pressure at goal; continue diltiazem 240 mg daily, lisinopril 10 mg daily Assessment & Plan (06/23/2022 1:23 PM MANAGER PLAN): Stable, well controlled; continue lisinopril 10 mg daily, carvedilol 3.125 mg b.i.d. Assessment & Plan (01/29/2022 4:30 PM CDT): Stable, well controlled; blood pressure at target today Continue carvedilol 3.125 mg b.i.d., lisinopril 10 mg daily Assessment & Plan (10/03/2021 4:06 PM CDT): Stable, well controlled; blood pressure at target today Continue carvedilol 3.125 mg b.i.d., diltiazem 240 mg daily lisinopril 20 mg daily Assessment & Plan (04/01/2021 4:08 PM MANAGER PLAN): Stable, well controlled; blood pressure at target today Continue carvedilol 3.125 b.i.d., diltiazem 240 mg daily, lisinopril 20 mg daily Assessment & Plan (12/27/2020 3:53 PM CDT): Stable, well controlled Continue carvedilol 3.125 mg b.i.d., diltiazem 240 mg daily Assessment & Plan (11/04/2020 2:32 PM CDT): Stable, at target in clinic, however patient reports recently she has had multiple episodes of elevated blood pressure measurements Will add lisinopril 20 mg daily Assessment & Plan (09/18/2020 4:18 PM CDT): Stable, continue current medications Assessment & Plan (08/13/2020 9:47 AM CDT): Continue current medical management Assessment & Plan (07/30/2020 3:26 PM CDT): Well controlled, continue current medications Assessment & Plan (02/22/2020 3:11 PM CDT): Continue home Cardizem. Continue to monitor BP. Pulmonary nodules/lesions, multiple 02/22/2020 Overview (02/29/2020): Due to smoking history requires annual screening in 01/2021 Assessment & Plan (01/29/2022 4:32 PM CDT): Stable, unchanged since last imaging Will continue to monitor Assessment & Plan (12/27/2020 3:55 PM CDT): High risk, nodules need to be reviewed in 1 year; will schedule for CT scan in January 2021 Assessment & Plan (02/29/2020 11:44 AM MANAGER PLAN): Continue to observe for symptoms, repeat CT scan as noted above Assessment & Plan (02/22/2020 3:14 PM CDT): Patient is a current smoker. CTA chest revealed Scattered pulmonary micro nodules measuring less than 0.6 cm. Recommended follow up in 1 year as patient is at high risk for lung cancer due to smoking. Class 2 severe obesity due t o excess calories with serious comorbidity and body mass index (BMI) of 39.0 to 39.9 in adult 02/13/2020 Assessment & Plan (06/23/2022 1:22 PM MANAGER PLAN): Not well controlled, weight is mildly up from February 2022; patient feels bloated and notes currently on weight Patient has generally good eating habits, eating small meals; avoiding junk food Patient reports good activity during the day Concern for possible additional calories not noted by patient's; patient also on Abilify which is known to cause weight gain Will continue to monitor encourage dietary adjustments, increased activity; if no improvement may also consider bariatric surgery as an option Assessment & Plan (01/29/2022 4:31 PM CDT): Stable, improving; patient continues to have weight loss Encouraged continue changes to diet, as well as improving general activity Assessment & Plan (10/03/2021 4:06 PM CDT): Stable, patient has multiple stressors, has been focusing on caring for family including mother Continue to monitor and encourage patient to work on dietary changes Assessment & Plan (04/01/2021 4:08 PM MANAGER PLAN): Stable, not well controlled Continue to encourage dietary strategies to reduce caloric intake as well as increased activity to 30 minutes 5 days per week Assessment & Plan (12/27/2020 3:53 PM CDT): Stable improving; patient has been working on weight loss, has been walking more in watching diet Assessment & Plan (11/26/2020 1:09 PM CDT): Limited ability to exercise due to bilateral knee pain, weight gain may be secondary to medication use as patient reports weight gain occurred after starting antidepressants and antipsychotics Encouraged patient to work on activity in order to help with weight loss Encouraged use of water aerobics given bilateral knee pain Assessment & Plan (11/04/2020 2:33 PM CDT): Patient has been working on healthy eating habits, also working sisters starting exercise routine Will continue to monitor and encourage patient with her weight loss Assessment & Plan (10/18/2020 3:18 PM CDT): Stable, patient has been making dietary and activity changes No significant weight change, however patient notes changes in the way her clothes fit than at this time patient would like to defer bariatric surgery Will continue to monitor and encourage patient on her weight loss goals, the patient continues to help and is not interested in bariatric surgery, will refer to Nutrition Service Assessment & Plan (09/18/2020 4:17 PM CDT): Not well controlled, has recent weight gain Patient is being seen in bariatric clinic for surgical evaluation, following up nutrition for further guidance and counseling to help with weight loss as well as dietary changes to support bariatric surgery Assessment & Plan (08/13/2020 9:50 AM CDT): The patient seems motivated would be a good candidate for weight loss surgery. Risks and benefits of the surgery have been explained to the patient. This has included blood clots, staple line leak as well as reflux. She is in understanding. During the course of her workup will have her evaluated by the dietitian as well as psych. Prior to surgery will set her up for an EGD to evaluate for hiatal hernia, H pylori or other gastric pathology. We have encouraged a walking regimen for cardiovascular activity. We have also recommended a food journal or sweta to track how much she is taking in on a daily basis. She should shoot for a goal intake of around 1600 spread throughout 4-5 meals a day. We will see her back in 1 month period greater than 15 minutes was spent in counseling the patient on diet and exercise with regards to her morbid obesity. Assessment & Plan (07/30/2020 3:22 PM CDT): Has been working on weight loss; trying to limit diet, limit caloric intake, patient is interested in bariatric surgery, will refer at this time Assessment & Plan (02/13/2020 9:15 AM CDT): Weight generally stable over past 3 visits, will continue to observe for weight loss given poor p.o. intake described by patient Bipolar affective disorder, currently depressed, moderate 02/05/2020 Assessment & Plan (06/06/2024 7:38 PM MANAGER PLAN): Currently off her medications. She is to contact her psychiatrist SELENE. Assessment & Plan (06/29/2023 3:10 PM MANAGER PLAN): Not currently well controlled, has significant depression; mostly due to decreased physical activity due to left hand injury Continues to have significant limitations in regular activities Follows with psychiatry for management Continue Xanax p.r.n.; Abilify 20 mg daily, bupropion 300 mg daily, oxcarbazepine 600 mg b.i.d. Assessment & Plan (06/23/2022 1:21 PM MANAGER PLAN): Not well controlled, multiple stressors; patient reports mother is in declining health; likely to start hospice care; roommate is causing problems, patient is starting to work Patient is up multiple times at night with insomnia Follows with psychiatry for management of medications Continue Xanax 1 mg t.i.d. p.r.n. for anxiety; Abilify 20 mg daily; bupropion 450 mg daily; hydroxyzine 25 mg p.r.n., Trileptal 450 mg Assessment & Plan (01/29/2022 4:31 PM CDT): No recent episodes of brendon or depression, but has significant stress due to mother moving from region Assessment & Plan (10/03/2021 4:07 PM CDT): Not well controlled, patient continues to have difficulty sleeping, elevated PHQ 9 score today Patient also psychiatry for management of medications Patient has multiple stressors which are worsening her depression Encouraged patient to engage with psychiatry as well as counseling services Assessment & Plan (04/01/2021 4:10 PM MANAGER PLAN): Not well controlled, has improved stressors but still has ongoing depression Has been required to do more to help her mother, unless support from family regarding care for the mother Has been having worsening sleeping, decreased increased activity increase crying or Appetite has been mixed Patient is unable to access Psychiatry due to meetings and acknowledges Patient continue Trileptal 600 mg b.i.d., Abilify 20 mg daily, Xanax 0.5 mg q.i.d. Assessment & Plan (12/27/2020 3:54 PM CDT): Stable, improving Patient is having increased support in taking care of her mother; patient's son and grandchildren also the of the house which is relieving her bills Patient continue on Xanax 0.5 mg 4 times per day, Abilify 20 mg daily, Trileptal 600 mg b.i.d. Assessment & Plan (11/26/2020 1:10 PM CDT): Recently worsening, patient reports she has high levels of anxiety due to living environment; especially mother's worsening dementia and son moving back in Patient reports only getting approximately 4 hours of sleep per night being tired during the day but unable to sleep Patient is scheduled to follow with psychiatry for further management of medications and patient would like to follow with counseling to help with other coping skills Assessment & Plan (11/04/2020 2:31 PM CDT): Stable, well controlled; will patient has multiple stressors at home, including taking care of elderly mother; patient reports her mood is generally good with only mild depression Will continue patient's Xanax 0.5 mg 4 times a day, Abilify 20 mg daily and Trileptal 600 mg daily Will refer patient to in clinic counseling for further discussion about stressors Patient referred to psychiatry as her previous psychiatrist left her current practice and she is unable to continue with that clinic Assessment & Plan (09/18/2020 4:16 PM CDT): Continues to have high levels of stress and anxiety Has been making adjustment to medications but still has difficulty with sleeping through the night Patient is on multiple sedative medicines including Xanax 0.5 t.i.d., Abilify 5 mg, and oxy carbamazepine Patient to continue to follow with psychiatry to manage medications, anxiety and bipolar disorder Assessment & Plan (07/30/2020 3:27 PM CDT): Some recent exhaustion and increased anxiety; recently loss of grandaughter at young age; multiple concerns -encourage counseling and start amitriptyline for sleep assistance Assessment & Plan (02/29/2020 11:44 AM MANAGER PLAN): Not controlled, patient reports high levels of anxiety and stress at home as she is living with her mother and is the primary caregiver of for mother Patient reports having recent breakdown and crying in front of sun after realization of significant psycho physis she is made to care for her mother Patient is looking at independent housing in order to have more stable in supportive environment for living Assessment & Plan (02/22/2020 3:11 PM CDT): Mood is good at this time. No SI or HI. Continue home Venlafaxine Stomach discomfort 02/05/2020 Assessment & Plan (06/23/2022 1:23 PM MANAGER PLAN): Likely GERD; will continue with treatment; patient may benefit from further evaluation by GI Continue AcipHex 20 mg daily, famotidine 40 mg daily Assessment & Plan (01/29/2022 4:30 PM CDT): Continues to have significant discomfort, patient reports no significant pain, no relief with Pepto-Bismol and Imodium Has diarrhea; patient has been having high levels of stress and anxiety; and symptoms of present for the past few months new line some relief with marijuana, which reduces spasms and improve stomach symptoms Symptoms are worse with fatty foods ; patient has history of cholecystectomy Unclear IBS, related to biliary insufficiency verses functional symptoms Will continue to try and manage mental health issues for relief Assessment & Plan (11/26/2020 1:08 PM CDT): Stable, improved Patient reports all GI symptoms such as cramping and diarrhea have resolved Continues to have irregular bowel movements Assessment & Plan (02/13/2020 9:13 AM CDT): Unclear etiology, patient reports she continues to have severe abdominal discomfort and nausea even even in severely restricted bland diet Patient reports no notable pain, but continues to have distention of the abdomen as well as nausea Today will check full hepatic panel, though previous testing 1 week ago demonstrated normal liver enzymes, normal platelets, and normal bilirubin -will also check INR to ensure full synthetic capacity of liver is present given patient reports easy bruising with normal platelets levels Will order for abdominal ultrasound to evaluate contents of distention as well as determine if there is any enlargement of the liver or spleen Order for EGD given continual nausea with no apparent cause Based on results will determine if Should be CT scan abdomen versus referral to GI for further evaluation and treatment Leiomyoma of uterus 06/15/2018 Overview (05/27/2020): Note: per ct scan done at [facility] 29-[address] Resolved Problems Problem Noted Date Diagnosed Date Resolved Date Opioid withdrawal 08/31/2017 02/05/2020 Alcohol withdrawal syndrome without complication 08/30/2017 08/31/2017 Blackout spell 02/29/2020 Immunizations Immunization Administration Dates Next Due Influenza, Quadrivalent, Spl it, Preservative Free, Intramuscular 01/16/2022,02/05/2020 Influenza, Trivalent, Preser vative Free, Intramuscular 01/02/2019 Influenza, Unspecified 07/13/2024(Deferr ed: Patient Refused),06/05/2024(Deferred: Patient Refused),05/25/2024(Deferred: Patient Refused),05/16/2024(Deferred: Patient Refused),04/13/2024(Deferred: Patient Refused),04/11/2024(Deferred: Patient Refused),01/31/2024(Deferred: Patient Refused),01/31/2024(Deferred: Patient Refused),01/31/2024(Deferred: Patient Refused),01/31/2024(Deferred: Patient Refused),02/01/2023(Deferred: Patient Refused),02/01/2023(Deferred: Patient Refused),03/14/2021(Deferred: Patient Refused),04/26/2020(Deferred: Patient Refused),04/26/2020(Deferred: Patient Refused) Social History Tobacco Use Types Packs/Day Years Used Date Smoking Tobacco: Every Day Cigarettes 0.2 46.3 Started: 1977 Vaping Smokeless Tobacco: Never Tobacco Cessation:Ready to Q uit: Not Asked; Counseling Given: Not Answered Alcohol Use Standard Drinks/Week Comments No 0 (1 standard drink = 0.6 oz pur e alcohol) Social Connection and Isolat ion Panel [NHANES] Answer Date Recorded In a typical week, how many times do you talk on the phone with family, friends, or neighbors? More than three times a week 06/11/2021 How often do you get togethe r with friends or relatives? More than three times a week 06/11/2021 How often do you attend chur ch or buddhist services? Never 06/11/2021 Do you belong to any clubs o r organizations such as congregational groups, unions, fraternal or athletic groups, or school groups? No 06/11/2021 How often do you attend meet ings of the clubs or organizations you belong to? Never 06/11/2021 Are you , , di vorced, , never , or living with a partner? 06/11/2021 AUDIT-C Answer Date Recorded Q1: How often do you have a drink containing alc ohol? Never 03/14/2021 Average Number of Drinks Not on file 021 Q3: How often do you have si x or more drinks on one occasion? Never 03/14/2021 Overall Financial Resource Strain (CARDIA) Answe r Date Recorded How hard is it for you to pa y for the very basics like food, housing, medical care, and heating? Not hard at all 06/11/2021 PHQ-2 Answer Date Recorded PHQ-2 Total Score 6 06/29/2023 PRAPARE - Transportation Answer Date Re corded In the past 12 months, has l ack of transportation kept you from medical appointments or from getting medications? No 05/27 In the past 12 months, has l ack of transportation kept you from meetings, work, or from getting things needed for daily living? No 06/11/2021 Housing Stability Vital Sign Answer Jrodan e Recorded In the last 12 months, was t here a time when you were not able to pay the mortgage or rent on time? No 06/11/2021 In the last 12 months, how many places have you lived? 1 06/11/2021 In the last 12 months, was t here a time when you did not have a steady place to sleep or slept in a snf (including now)? No 06/11/2021 PHQ-9 Answer Date Recorded PHQ-9 Total Score 9 06/29/2023 Personal Safety Answer Date Recorded Have you ever been in or are you currently in a harmful physical or emotional relationship or is someone making you feel afraid or unsafe? 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 [employer] Gender Identity Not on file Sexual Orientation Not on file Last Filed Vital Signs Vital Sign Reading Time Taken Comments Blood Pressure 138/88 06/06/2024 12:50 PM MANAGER PLAN Pulse 94 06/06/2024 12:50 PM MANAGER PL[employer] Temperature 36.8 C (98.2 F) 06/06/2024 12:50 PM MANAGER PLAN Respiratory Rate 18 03/23/2023 3:34 PM MANAGER PLAN Oxygen Saturation 95% 06/06/2024 12:50 PM MANAGER PLAN Inhaled Oxygen Concentration - - Weight 121 kg (266 lb 12.8 oz) 06/06/2024 12:50 PM MANAGER PLAN Height 170.2 cm (5' 7.01 ) 06/06/2024 12:[address] Body Mass Index 41.78 06/06/2024 12:50 PM MANAGER PLAN Plan of Treatment Not on file Goals Goal Patient Goal Type Associated Problems Recent Progress Patient-Stated? Author DANNY General Goal - Patient is knowledgeable about condition when worsening and how to respond ACO Care Management No Joesph Cobb, RN Note: Problem: Knowledge deficit related to signs and symptoms of worsening condition Interventions: - Assess patient's level of understanding related to their condition(s), specific medications and self-management of their chronic conditions. - Send educational materials to patient related to their chronic condition, including signs and symptoms, self-management actions, and serious symptoms that require urgent medical intervention. - Assist patient/provider in developing an action plan for symptom management. - Review with patient weekly: s/s worsening condition, self-management actions to take, when to call CM or provider. Procedures Procedure Name Priority Date/Time Associated Diagnosis Comments POC INFLUENZA A/B, COVID-19 ANTIGEN Routine 06/06/2024 7:52 AM MANAGER PLAN Nausea Weakness SCAN - RADIOLOGY/IMAGING 05/10/2024 HEPATITIS C ANTIBODY Routine 07/26/2020 2:14 PM CDT Essential hypertension SCREENING MAMMOGRAM BILATERAL W THIERRY Schedule Routine, Read Routine (OP Routine) 02/06/2020 10:40 AM CDT Encounter for screening mammogram for malignant neoplasm of breast Annual physical exam COLONOSCOPY 10/09/2014 12:00 AM CDT from Last 3 Months or Most Recently Relevant to Health Maintenance Results * POC Influenza A/B, COVID-19 antigen (06/06/2024 7:52 AM MANAGER PLAN) Influenza A Ag, POC Negative Negative [facility]CP [facility] Influenza B Ag, POC Negative Negative [facility] COVID-19 Ag POC Presumptive Negative Presumptive Negative, Invalid [facility] Nasal 06/06/2024 7:52 AM MANAGER PLAN Krissy Noble FISH FRYER POINT OF CARE TEST ORDERABLES Final Result [facility] [address] [place] [id number], [facility] * SCAN - RADIOLOGY/IMAGING (05/10/2024) Anatomical Region Laterality Modality Other Martell Chino MD Final Res ult * Hepatitis C antibody (07/26/2020 2:14 PM CDT) Hep C Ab Nonreactive Nonreactive [facility]UG[facility] Comment: Interpretive Data Nonreactive: Antibodies to HCV not detected. Does NOT exclude the possibility of recent exposure to HCV. Equivocal: Equivocal for HCV antibodies. Supplemental molecular testing will be automatically performed to determine infection status in accordance with current CDC screening recommendations. Reactive: Positive for HCV antibodies. This may represent current or past HCV infection. Supplemental molecular testing will be automatically performed to determine current infection status in accordance with current CDC screening recommendations. Interpretive data was last revised on 2019. Blood specimen (specimen) 07/26/2020 2:14 PM CDT 07/26/2020 5:39 PM CDT Martell Chino MD LAB MICROBIOLOGY - [facility] L ORDERABLES Final Result YOHANNES LAUGHLIN [id number] [place] [address] * SCREENING MAMMOGRAM BILATERAL W THIERRY (02/06/2020 10:40 AM CDT) Anatomical Region Laterality Modality Breast Bilateral Mammography 02/07/2020 12:5 9 PM CDT Impressions 02/07/2020 1:03 PM CDT No evidence of malignancy. Follow-up in 1 year with screening mammography is recommended. BI-RADS: 1 - Negative. Electronically signed by: Tom Ontiveors M.D. Narrative 02/07/2020 1:03 PM CDT EXAMINATION: SCREENING MAMMOGRAM BILATERAL W THIERRY ORDERING HEALTHCARE PROVIDER: MARTELL CHINO HISTORY: Routine screening mammography. COMPARISON: 10/21/2010 through 02/08/17 TECHNIQUE: CC and MLO views of the bilateral breasts were obtained with digital technique using breast tomosynthesis with C view. Computer aided detection was utilized. FINDINGS: There is scattered fibroglandular tissue There are no suspicious masses, calcifications, or architectural distortion. Martell Chino MD IMG MAMMO PROCEDURES Danuta l Result * COLONOSCOPY (10/09/2014 12:00 AM CDT) Anatomical Region Laterality Modality Other Narrative 10/09/2014 12:00 AM CDT Ordered by an unspecified provider. Procedure Note Provider, MD Ney - 10/09/2014 12:00 AM CDT PROCEDURE REPORT Patient: HANNAH CATES Account: [id number] Room No: : 1960 Patient Type: SDS Attend.: Srinivasan Ramirez M.D. Admit Date: 10/09/2014 Dict.: Srinivasan Ramirez M.D. Disch. Date: 10/09/2014 NAME OF PROCEDURE: Colonoscopy. HISTORY: 54-year-old female with chronic abdominal pain, irritablebowel syndrome, who has an abnormal CT scan suggesting thickening of the wall ofthe descending and sigmoid colon. She also gives a history of having [facility] location, unknown physician, but her understanding was that they did a partial polypectomy, unable to removean entire tumor. PHYSICAL EXAMINATION: Obese female, lungs are clear. Cardiovascular examis unremarkable. PROCEDURE: Colonoscopy was performed with an Olympus videoendoscope.On digital exam she has got grade 2 hemorrhoids. We inserted the endoscopeand advanced it to the cecum. Colonic prep was excellent. We carefullysearched the mucosa and could find no abnormalities from the anus to the cecum.The patient tolerated the procedure without difficulty. POSTOPERATIVE DIAGNOSIS: Hemorrhoidal disease, otherwise normal. PLAN: Surveillance in 5 years if she indeed had a polyp in the past.Of course, those records are not available to us. Kimberly Rubio TD: 10/09/2014 23:52 CC: Alonso Price M.D. Electronically Authenticated by: Srinivasan Ramirez MD On 10/11/2014 07:40 AM CDT us Historical Provider ENDOSCOPY PROCEDURES Danuta l Result from Last 3 Months or Most Recently Relevant to Health Maintenance Insurance MEDICARE [facility] MEDICARE ADVANTAGE MEDICARE ADVANTAGE [employer] CHOICE MEDICARE PPO Advance Directives For more information, please contact: [phone] * Full Code (Latest Code Status on File) Date Activated Date Inactivated Comments 02/21/2020 7:51 PM 02/23/2020 3:22 PM * Full Code Date Activated Date Inactivated Comments 08/30/2017 1:26 PM 09/01/2017 4:14 PM Care Teams Repairer And Checker Relationship Specialty Start Date End Date Martell Chino MD [address] [place] [address] PCP - General Family Medicine 02/05/20
--- OUTSIDE RECORDS SUMMARY | 2024-07-30 13:45 | XMS_ITS | Clinical Summary ---
Author Organization [facility] Address [address] [place] [address] Care Team Providers Care Rn Orthopaedics Name Role Phone Martell Chino MD Primary Care Provider [phone] Allergies Active Allergy Reactions Criticality Noted Date [...] 03/27 Assessment & Plan (06/06/2024 7:35 PM PULMONARY SPECIALIST): BMI 41.78. Patient did not wish to discuss diet and exercise. Assessment & Plan (04/14/2024 3:59 PM PULMONARY SPECIALIST): BMI 42.40. Discussed making dietary changes, trying to make healthier food choices including portion control. Encourage moderate intensity exercise 30 minutes 5 days per week. Recommend weight loss Left wrist tendonitis 06/29/2023 Assessment & Plan (06/29/2023 3:11 PM PULMONARY SPECIALIST): Not well controlled; continues to have significant [...] 05/14/2021 Assessment & Plan (06/06/2024 7:37 PM PULMONARY SPECIALIST): Stable. She has an appointment with her [...] 12/27/2020 Assessment & Plan (06/06/2024 7:35 PM PULMONARY SPECIALIST): She does have her albuterol HFA inhaler for p.r.n. use and has not used it recently. Assessment & Plan (06/29/2023 3:11 PM PULMONARY SPECIALIST): Stable, well controlled, breathing is improved; patient [...] p.r.n. Assessment & Plan (04/01/2021 4:10 PM PULMONARY SPECIALIST): Stable, well controlled; continue albuterol p.r.n., Trelegy Ellipta 1 puff daily Assessment & Plan (12/27/2020 3:56 PM CDT): Stable; continue Trelegy Ellipta daily Moderate tobacco use disorder 07/30/2020 Assessment & Plan (04/14/2024 3:56 PM PULMONARY SPECIALIST): Patient has been reducing the amount she smokes with a goal of quitting on 04/26/2024. Encouraged smoking cessation. Assessment & Plan (06/29/2023 3:11 PM PULMONARY SPECIALIST): Stable, improving, down to 2 cigarettes per [...] use Assessment & Plan (04/01/2021 4:10 PM PULMONARY SPECIALIST): Continues to smoke regularly; encouraged discontinuation Assessment [...] 02/22/2020 Assessment & Plan (02/29/2020 11:43 AM PULMONARY SPECIALIST): Improving, no evidence of cardiac or vascular [...] 30 day monitor. 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 Advised to avoid dangerous activities like driving, climbing, swimming until this is resolved. HTN (hypertension) 02/22/2020 Assessment & Plan (06/06/2024 7:36 PM PULMONARY SPECIALIST): BP 138/88, stable despite being off of her blood pressure medications for several weeks. Assessment & Plan (06/29/2023 3:09 PM PULMONARY SPECIALIST): Stable, well controlled, blood pressure at goal; continue diltiazem 240 mg daily, lisinopril 10 mg daily Assessment & Plan (06/23/2022 1:23 PM PULMONARY SPECIALIST): Stable, well controlled; continue lisinopril 10 mg [...] daily Assessment & Plan (04/01/2021 4:08 PM PULMONARY SPECIALIST): Stable, well controlled; blood pressure at target [...] 2021 Assessment & Plan (02/29/2020 11:44 AM PULMONARY SPECIALIST): Continue to observe for symptoms, repeat CT [...] 02/13/2020 Assessment & Plan (06/23/2022 1:22 PM PULMONARY SPECIALIST): Not well controlled, weight is mildly up [...] changes Assessment & Plan (04/01/2021 4:08 PM PULMONARY SPECIALIST): Stable, not well controlled Continue to encourage [...] 02/05/2020 Assessment & Plan (06/06/2024 7:38 PM PULMONARY SPECIALIST): Currently off her medications. She is to contact her psychiatrist SELENE. Assessment & Plan (06/29/2023 3:10 PM PULMONARY SPECIALIST): Not currently well controlled, has significant depression; mostly due to decreased physical activity due to left hand injury Continues to have significant limitations in regular activities Follows with psychiatry for management Continue Xanax p.r.n.; Abilify 20 mg daily, bupropion 300 mg daily, oxcarbazepine 600 mg b.i.d. Assessment & Plan (06/23/2022 1:21 PM PULMONARY SPECIALIST): Not well controlled, multiple stressors; patient reports [...] services Assessment & Plan (04/01/2021 4:10 PM PULMONARY SPECIALIST): Not well controlled, has improved stressors but [...] assistance Assessment & Plan (02/29/2020 11:44 AM PULMONARY SPECIALIST): Not controlled, patient reports high levels of [...] 02/05/2020 Assessment & Plan (06/23/2022 1:23 PM PULMONARY SPECIALIST): Likely GERD; will continue with treatment; patient [...] (05/27/2020): Note: per ct scan done at [facility] 08-22-[address] Resolved Problems Problem Noted Date Diagnosed Date Resolved Date Opioid withdrawal 08/31/2017 02/05/2020 Alcohol withdrawal syndrome without complication 08/30/2017 08/31/2017 Blackout spell 02/29/2020 Encounters Date Type Department Care Team Description 06/09/2024 10:15 AM PULMONARY SPECIALIST Telemedicine [facility] [address] [place] [phone] Maicol Dee MD Bipolar affective disorder, currently depressed, moderate (HCC) (Primary Dx); Generalized anxiety disorder 06/06/2024 1:00 PM PULMONARY SPECIALIST Office Visit [facility] at [address] [phone] Krissy Noble NP Acute cough (Primary Dx); Nausea; Weakness; Primary hypertension; Centrilobular emphysema (HCC); Generalized anxiety disorder; Hyperlipidemia, unspecified hyperlipidemia type; Bipolar affective disorder, currently depressed, moderate (HCC); Morbid obesity with BMI of 40.0-44.9, adult (HCC) 06/06/2024 Telephone [facility] [address] [facility] [address] [place] [address] Maicol Dee MD 06/01/2024 Telephone [facility] Accountable Care Organization [address] [place] [id number] Amelia Hernández MA Unsuccessful Phone Call 1 ([facility]) 05/25/2024 11:30 AM PULMONARY SPECIALIST Telemedicine [facility] [address] [place] [phone] Shruthi Christine MD Acute cough (Primary Dx) 05/25/2024 Nurse Triage [facility] [address] [phone] Vandana Mina RN 05/25/2024 Telephone [facility] [address] [phone] Martell Chino MD Symptom Based Call 05/15/2024 Telephone [facility] [address] [phone] Martell Chino MD Symptom Based Call 05/10/2024 Orders Only [facility] Health Information Management [address] [place] [phone] Martell Chino MD from Last 3 Months Immunizations Immunization Administration Dates Next Due Influenza, Quadrivalent, Spl it, Preservative Free, Intramuscular 01/16/2022,02/05/2020 Influenza, Trivalent, Preser vative Free, Intramuscular 01/02/2019 Influenza, Unspecified 07/13/2024(Deferr ed: Patient Refused),06/05/2024(Deferred: Patient Refused),05/25/2024(Deferred: Patient Refused),05/16/2024(Deferred: Patient Refused),04/13/2024(Deferred: Patient Refused),04/11/2024(Deferred: Patient Refused),01/31/2024(Deferred: Patient Refused),01/31/2024(Deferred: Patient Refused),01/31/2024(Deferred: Patient Refused),01/31/2024(Deferred: Patient Refused),02/01/2023(Deferred: Patient Refused),02/01/2023(Deferred: Patient Refused),03/14/2021(Deferred: Patient Refused),04/26/2020(Deferred: Patient Refused),04/26/2020(Deferred: Patient Refused) Surgical History Surgery Date Site/Laterality Comments CHOLECYSTECTOMY 04/26/2009 - 04/25/2010 TUBAL LIGATION 04/26/1984 - 04/25/1985 Bi Polar: Bilateral tubal ligation BREAST BIOPSY right breast - 1999 Medical History Medical History Date Comments Hx Other Medical Bi Polar History of multiple allergies Al lergies Kidney stones Bipolar affective (HCC) Hypertension Bipolar 1 disorder (HCC) Irritable bowel syndrome Smoking Breast injury 1999 Family History Medical History Relation Name Comments Breast cancer Cousin Bladder Cancer Father Cancer, bladd er; Cancer Other 1 Family history of Cancer; Heart disease Other 2 Family history of Heart disease; Relation Name Status Comments Cousin Father Mother Alive Other 1 Other 2 Social History Tobacco Use Types Packs/Day Years [...] often do you attend chur ch or episcopal services? Never 06/11/2021 Do you belong to any clubs o r organizations such as restoration groups, unions, fraternal or athletic groups, or [...] No 06/11/2021 Housing Stability Vital Sign Answer Jordan e Recorded In the last 12 months, [...] place to sleep or slept in a care home (including now)? No 06/11/2021 PHQ-9 Answer Date [...] on file Legal Sex Female 8:06 PM PULMONARY SPECIALIST Gender Identity Not on file Sexual Orientation Not on file Obstetrics History Para Term AB IAB SAB Ectopic Multiple Livin g Live Births 3 3 3 Date Outcome GA Total Labor Labor/2nd/3rd Weight Sex Type Anes PTL Fe A1 A5 Name Clin Term Term Term Last Filed Vital Signs Vital Sign Reading Time Taken Comments Blood Pressure 138/88 06/06/2024 12:50 PM PULMONARY SPECIALIST Pulse 94 06/06/2024 12:50 PM PULMONARY SPECIALIST Temperature 36.8 C (98.2 F) 06/06/2024 12:50 PM PULMONARY SPECIALIST Respiratory Rate 18 03/23/2023 3:34 PM PULMONARY SPECIALIST Oxygen Saturation 95% 06/06/2024 12:50 PM PULMONARY SPECIALIST Inhaled Oxygen Concentration - - Weight 121 kg (266 lb 12.8 oz) 06/06/2024 12:50 PM PULMONARY SPECIALIST Height 170.2 cm (5' 7.01 ) 06/06/2024 12:[address] Body Mass Index 41.78 06/06/2024 12:50 PM PULMONARY SPECIALIST Plan of Treatment Health Maintenance Due Date Last Done Comments Cervical Cancer Screening 1960 Regular Well Visit/Exam 18-64 1979 Colon Cancer Screening-Colonoscopy 10/10/2019 10/09/2014 Breast Cancer Screening-Mammogram 02/05/2021 02/06/2020, 02/06/2020, 07/06/2018, Additional history exists Depression Screening 06/28/2024 06/29/2023, 06/29/2023, 06/23/2022, Additional history exists Influenza Vaccine (#1) 2024 2, 02/05/2020, 01/02/2019 Postponed from 12/26/2023 (Patient declined, but will receive in the future) Pneumococcal vaccine <65 (1 of 2 - PCV) 03/27/2025 Postponed from 01/07/1980 (Patient declined, but will receive in the future) Zoster Vaccine (1 of 2) 04/11/2025 Post poned from 2011 (Patient declined, but will receive in the future) Colon Cancer Screening-CT Colonography Discontinued 10/09/2014 Colon Cancer Screening-DNA Stool Discontinued 10/09/2014 Colon Cancer Screening-FIT Discontinued 10/09/2014 Colon Cancer Screening-Sigmoidoscopy Discontinued 10/09/2014 Hepatitis C Screening Completed 07/26/2020 Hepatitis B Screening Completed 04/14/2024 DTaP/Tdap/Td Vaccine Discontinued Goals Goal Patient Goal Type Associated Problems Recent Progress Patient-Stated? Author DANNY General Goal - Patient is knowledgeable about condition when worsening and how to respond ACO Care Management Joesph Quintero, RN Note: Problem: Knowledge deficit related to [...] A/B, COVID-19 ANTIGEN Routine 06/06/2024 7:52 AM PULMONARY SPECIALIST Nausea Weakness SCAN - RADIOLOGY/IMAGING 05/10/2024 HEPATITIS [...] Influenza A/B, COVID-19 antigen (06/06/2024 7:52 AM PULMONARY SPECIALIST) Influenza A Ag, POC Negative Negative PCP [facility] Influenza B Ag, POC Negative Negative [facility]CP [facility] COVID-19 Ag POC Presumptive Negative Presumptive Negative, Invalid PCP [facility] Nasal 06/06/2024 7:52 AM PULMONARY SPECIALIST Krissy Noble NP POINT OF CARE TEST ORDERABLES Final Result PCP ROBYN LAWSON [address] [place] [address], [facility] * SCAN - RADIOLOGY/IMAGING (05/10/2024) Anatomical [...] CDT Martell Chino MD LAB MICROBIOLOGY - GENERA L ORDERABLES Final Result [facility] [address] [place] [address] * SCREENING MAMMOGRAM BILATERAL W THIERRY (02/06/2020 10:40 AM CDT) Anatomical Region Laterality Modality Breast Bilateral Mammography 02/07/2020 12:5 9 PM CDT Impressions 02/07/2020 1:03 PM CDT No evidence of malignancy. Follow-up in 1 year with screening mammography is recommended. BI-RADS: 1 - Negative. Electronically signed by: Tom Ontiveros M.D. Narrative 02/07/2020 1:03 PM CDT EXAMINATION: [...] CDT PROCEDURE REPORT Patient: HANNAH CATES Account: [id number] Room No: : 1960 Patient Type: SDS [...] Recently Relevant to Health Maintenance Insurance MEDICARE [facility] MEDICARE ADVANTAGE MEDICARE ADVANTAGE [employer] CHOICE MEDICARE PPO Advance Directives For more information, please contact: [phone] * Full Code (Latest Code Status on File) Date Activated Date Inactivated Comments 02/21/2020 7:51 PM 02/23/2020 3:22 PM * Full Code Date Activated Date Inactivated Comments 08/30/2017 1:26 PM 09/01/2017 4:14 PM Care Teams Rn Orthopaedics Relationship Specialty Start Date End Date Martell Chino MD [address] [place] [address] PCP - General Family Medicine 02/05/20
[2024-07-30 13:50] VITALS: BP 133/96; PULSE 102; RESP 20; TEMP 36.6; O2SAT 96
--- NOTE | 2024-07-30 14:12 | ED.URI ---
HPI - URI/Sore Throat General Chief Complaint: Upper Respiratory Infection Stated Complaint: Fever/Cough/Weak Time Seen by Provider: 07/30/24 14:05 Source: patient, RN notes reviewed and old records reviewed Mode of arrival: ambulatory Limitations: no limitations History of Present Illness HPI Narrative: 64 year old female who presents to [facility] care with complaints of feeling ill for a month with increased symptoms for the past 2 weeks. Patient reports that she has been in bed a lot the past 2 weeks since she felt so bad. Patient reports that her cough has been productive and is worse at night, has been using her inhaler, taking some OTC cold medication and also using Tylenol and Ibuprofen for her symptoms.Patient reports that she is unsure if she has had a fever but she has had chills and sweats. Patient reports that she has had a lot of post nasal drainage and her voice is hoarse. MD elicited complaint: cough, rhinorrhea, nasal congestion and other (hoarseness, some dyspnea) Pertinent past history: pneumonia Onset (ago): week(s) (2 weeks increased symptoms) Severity: moderate Description of mucous: yellow Able to tolerate fluids by mouth: Yes Treatments prior to arrival: acetaminophen, ibuprofen, cold medicine and other (inhaler) Related Data Home Medications ?Medication ?Instructions ?Recorded ?Confirmed ?Last Taken ?Type alprazolam 1 mg tablet 1 mg PO TID 04/24/19 04/22/23 Unknown History aripiprazole 20 mg tablet 20 mg PO DAILY 09/24/22 04/22/23 Unknown History atorvastatin 20 mg tablet 20 mg PO DAILY 09/24/22 04/22/23 Unknown History bupropion HCl 300 mg 24 hr tablet, 300 mg PO DAILY 09/24/22 04/22/23 Unknown History extended release lisinopril 10 mg tablet 20 mg PO DAILY 09/24/22 04/22/23 Unknown History ergocalciferol (vitamin D2) 1,250 1,250 mcg PO WEEKLY 02/26/23 04/22/23 Unknown History mcg (50,000 unit) capsule ramelteon 8 mg tablet 8 mg PO DAILY 04/22/23 04/22/23 Unknown History trazodone 100 mg tablet 100 mg PO BID 04/22/23 04/22/23 Unknown History Allergies Allergy/AdvReac Type Severity Reaction Status Date / Time acetaminophen (From Vicodin) Allergy Unknown unknown Verified 07/30/24 13:53 hydrocodone (From Vicodin) Allergy Unknown unknown Verified 07/30/24 13:53 Penicillins Allergy Unknown Unknown Verified 07/30/24 13:53 vancomycin Allergy Unknown SWELLED Verified 04/22/23 14:29 UP tramadol AdvReac Unknown Itching Verified 04/22/23 14:29 Review of Systems Review of Systems: CONSTITUTIONAL: Reports malaise,some chills, sweats, no known fever. EYES: Denies visual changes, redness, or discharge. ENT: Reports rhinorrhea, congestion, sinus pain,no otalgia and no sore throat. CARDIOVASCULAR: Denies chest pain, palpitations, or edema. RESPIRATORY: Reports productive cough .? Reports some dyspnea. GASTROINTESTINAL: Denies abdominal pain, nausea, vomiting, diarrhea SKIN: Denies rash or itching. MUSCULOSKELETAL: Denies myalgia. NEUROLOGIC: Reports some frontal headache. All systems reviewed & are unremarkable except as noted in HPI and below PMFSH Past Medical History Medical History Bipolar disorder Anxiety and depression Elevated cholesterol Hypertension Surgical History Surgical History H/O sinus surgery Hx laparoscopic cholecystectomy H/O tubal ligation Social History Social History Smoking packs per day: 0.5 Smoking cigarettes per day: 10.0 Years smoked: 40 Smoking pack-years: 20.00 Smoking status: Current every day smoker Tobacco type: cigarettes Alcohol intake: unknown Substance use: unknown Gender identity (if verbalized by the patient): Female Comments At time of signature, agree with nursing past medical, surgical, social and family history. There is no relevant family history pertinent to the presenting complaint Exam Narrative: GENERAL: Well-appearing, well-nourished, and in no acute distress. HEAD: Normocephalic EYES: PERRLA, conjunctivae clear ENT: Nares clear, turbinates edematous and erythematous, clear to light yellow discharge. Mucous membranes moist. TM pearly maria with dull light reflex bilaterally; no tragal tenderness. Oropharynx erythematous without lesions. Tonsils not enlarged and without exudate, no drooling, positive for hoarseness, no trismus, uvula midline.post nasal drainage noted NECK: Supple. No lymphadenopathy CHEST: Clear to auscultation, breath sounds equal. No wheezing, rhonchi, rales, or stridor. No respiratory distress, speaks in full sentences. productive cough SAO2 96% on rom air HEART: Regular rate and rhythm. No murmur heard. SKIN: Warm, dry, no rash. NEURO: Alert and oriented x3. PSYCH: Normal mood and affect Course Course Emergency Course: Patient is aware of diagnosis, understands and agrees to treatment plan.? Anticipatory guidance given.? Patient agrees to follow-up as directed and is aware of reasons to seek care at the emergency department. Portions of this record may have been created with voice recognition software Level of Care: Express Care Visit Vital Signs Vital signs: Vital Signs Temperature 36.6 C 07/30/24 13:50 Pulse Rate 102 H 07/30/24 13:50 Respiratory Rate 20 07/30/24 13:50 Blood Pressure 133/96 H 07/30/24 13:50 Pulse Oximetry 96 07/30/24 13:50 Oxygen Delivery Room Air 07/30/24 13:50 Temperature 36.6 C 07/30/24 13:50 Pulse Rate 102 H 07/30/24 13:50 Respiratory Rate 20 07/30/24 13:50 Blood Pressure 133/96 H 07/30/24 13:50 Pulse Oximetry 96 07/30/24 13:50 Oxygen Delivery Room Air 07/30/24 13:50 Reviewed MDM - URI/Sore Throat MDM Narrative Medical decision making narrative: Differential diagnosis considered: Morris virus, strep pharyngitis, allergic rhinitis, upper respiratory tract infection, sinusitis, rhinosinusitis, nasopharyngitis. viral pharyngitis, otitis media, otitis externa, pneumonia, bronchitis, viral cough syndrome, viral syndrome, and influenza.? Exam findings show no acute concerns or changes; patient is non-toxic appearing and is in no distress.? Patient is appropriate for outpatient treatment and follow-up. Differential Diagnosis Differential diagnosis: Likely upper respiratory infection, sinusitis, viral infection, bronchitis and other (acute cough) Medical Records Attestation: I reviewed the patient's medical records. Lab Data Attestation: I reviewed the patient's lab results. Critical Care Time Critical Care Time Critical Care Time: No Discharge Plan Discharge Clinical Impression: Sinusitis Qualifiers: Sinusitis location: pansinusitis Chronicity: acute Recurrence: not specified as recurrent Qualified Code(s): J01.40 - Acute pansinusitis, unspecified Patient Disposition: Home, Self-Care Condition: Stable Instructions: Antibiotic Form, Sinusitis (ED), Acute Cough (ED) Additional Instructions: Increase fluids especially juices and water [id number] cough and cold medicine of your choice for your symptoms Continue your inhaler/nebulizer as directed Steroids as directed--take with food heat to the face 20-30 minutes 4-6 times a day for pain Salt water gargles, throat lozenges or throat sprays as desired Antibiotic as directed--finished the medication Monitor your temperature daily Tylenol or Ibuprofen for any fever or pain Zyrtec, Claritin or Melita daily and include Coricidin decongestant If your symptoms persist, change or worsen significantly before you can contact your personal physician then please, without delay, go to the emergency department for further evaluation. Follow-up with PCP in 7-10 days or sooner if needed Follow up with PCP soon in regards to your blood pressure which is elevated above threshold for referral. Blood pressure above 120/80 may indicate pre-hypertension. With 133/96 Patient Language: Swedish Prescriptions: New prednisone 20 mg tablet 20 mg PO BID Qty: 10 0RF Rx Instructions: rake with food take pm dose prior to 6 pm azithromycin 500 mg tablet See Rx Instructions .ROUTE .COMPLEX Qty: 5 0RF Rx Instructions: For 500 mg: take 500 mg once daily for 5 days No Action alprazolam 1 mg Tablet 1 mg PO TID ramelteon 8 mg tablet 8 mg PO DAILY trazodone 100 mg tablet 100 mg PO BID benzonatate 200 mg capsule 200 mg PO TID PRN (Reason: cough) Qty: 20 0RF methocarbamol 750 mg tablet 750 mg PO Q8H PRN (Reason: muscle pain/spasm) Qty: 30 0RF fluticasone propionate [Flonase Allergy Relief] 50 mcg/actuation spray,suspension 1 spray intranasal BID Qty: 16 0RF Rx Instructions: administer into each nostril atorvastatin 20 mg tablet 20 mg PO DAILY aripiprazole 20 mg tablet 20 mg PO DAILY bupropion HCl 300 mg tablet extended release 24 hr 300 mg PO DAILY lisinopril 10 mg tablet 20 mg PO DAILY ergocalciferol (vitamin D2) 1,250 mcg (50,000 unit) capsule 1,250 mcg PO WEEKLY Follow-up/Referrals: UNKNOWN,DOCTOR [Primary Care Provider] - Time of Disposition: 14:18 Quality [place] Coma Scale Eyes: Open Verbal: Oriented and Alert Motor: Follows Commands Shannon Coma Total Score: 15
== END 2024-07-30 14:23 | disposition home or self-care (01) ==
PROVIDERS: Emergency Provider Registered Nurse
DX: J01.40 Acute pansinusitis, unspecified (principal); F17.210 Nicotine dependence, cigarettes, uncomplicated; I10 Essential (primary) hypertension; E78.00 Pure hypercholesterolemia, unspecified; F41.9 Anxiety disorder, unspecified; F32.A Depression, unspecified
CPT/HCPCS: 99213; G0463

== ENCOUNTER 2024-10-21 19:51 | Emergency (ER) | payer MEDICARE, SELFPAY ==
[2024-10-21 19:56] VITALS: BP 148/95; PULSE 87; RESP 20; TEMP 36.6; O2SAT 95
--- NOTE | 2024-10-21 20:02 | ED_ITS ---
HPI - URI/Sore Throat General Chief Complaint: Upper Respiratory Infection Stated Complaint: ears and throat hurting, cough Patient presents to the [facility] with complaints of increased shortness of breath, frequent cough, left ear pain, sore throat nasal congestion, nasal drainage, headaches, and dizziness. Patient reports she has been using some cough cold medications but has a history of COPD and the symptoms happen frequently. Patient does have an albuterol inhaler at and has been using this As needed with minimal relief of symptoms. Patient does report having some chills and possible fever earlier today. Denies wheezing nausea, vomiting, diarrhea, or drainage from ear. Related Data Home Medications ?Medication ?Instructions ?Recorded ?Confirmed ?Last Taken ?Type alprazolam 1 mg tablet 1 mg PO TID 04/24/19 04/22/23 Unknown History aripiprazole 20 mg tablet 20 mg PO DAILY 09/24/22 04/22/23 Unknown History atorvastatin 20 mg tablet 20 mg PO DAILY 09/24/22 04/22/23 Unknown History bupropion HCl 300 mg 24 hr tablet, 300 mg PO DAILY 09/24/22 04/22/23 Unknown History extended release lisinopril 10 mg tablet 20 mg PO DAILY 09/24/22 04/22/23 Unknown History ergocalciferol (vitamin D2) 1,250 1,250 mcg PO WEEKLY 02/26/23 04/22/23 Unknown History mcg (50,000 unit) capsule ramelteon 8 mg tablet 8 mg PO DAILY 04/22/23 04/22/23 Unknown History trazodone 100 mg tablet 100 mg PO BID 04/22/23 04/22/23 Unknown History celecoxib 200 mg capsule mg 10/21/24 Unknown History cyclobenzaprine 5 mg tablet mg 10/21/24 Unknown History hydrochlorothiazide 12.5 mg tablet mg 10/21/24 Unknown History oxcarbazepine 600 mg tablet mg 10/21/24 Unknown History zolpidem 5 mg tablet mg 10/21/24 Unknown History Allergies Allergy/AdvReac Type Severity Reaction Status Date / Time acetaminophen (From Vicodin) Allergy Unknown unknown Verified 10/21/24 19:56 hydrocodone (From Vicodin) Allergy Unknown unknown Verified 10/21/24 19:56 Penicillins Allergy Unknown Unknown Verified 10/21/24 19:56 vancomycin Allergy Unknown SWELLED Verified 10/21/24 19:56 UP tramadol AdvReac Unknown Itching Verified 10/21/24 19:56 Review of Systems Constitutional: Constitutional: Reports as per HPI, Reports chills, Reports fatigue, Reports fever(s) and Denies weakness Eyes: Eyes: Reports no additional eye complaints ENT: Reports as per HPI, Reports vertigo, Reports dizziness, Reports nasal congestion and Reports sore throat Cardiovascular: Cardiovascular: Reports no additional cardiovascular complaints Respiratory: Respiratory: Reports as per HPI, Reports chest congestion, Reports cough, Reports dyspnea and Denies wheezing Gastrointestinal: Gastrointestinal: Reports no additional gastrointestinal complaints Genitourinary: Genitourinary: Reports no additional female genitourinary complaints Musculoskeletal: Musculoskeletal: Reports no additional musculoskeletal complaints Neurologic: Reports as per HPI, Reports vertigo, Reports dizziness and Reports headache(s) Psychiatric: Psychiatric: Reports no additional psychiatric complaints Endocrine: Endocrine: Reports no additional endocrine complaints Hematologic/Lymphatic: Hematologic/Lymphatic: Reports no additional hematologic/lymphatic complaints Allergic/Immunologic: Allergic/Immunologic: Reports no additional allergic/immunologic complaints PMFSH Past Medical History Medical History Bipolar disorder Anxiety and depression Elevated cholesterol Hypertension Surgical History Surgical History H/O sinus surgery Hx laparoscopic cholecystectomy H/O tubal ligation Social History Social History Smoking packs per day: 0.5 Smoking cigarettes per day: 10.0 Years smoked: 40 Smoking pack-years: 20.00 Smoking status: Current every day smoker Tobacco type: cigarettes Alcohol intake: unknown Substance use: unknown Gender identity (if verbalized by the patient): Female Exam Const: General: healthy appearing and no acute distress Nutritional Appearance: well nourished Orientation/consciousness: patient oriented x3 Limitations: no limitations HENMT: Head: normal to inspection Ears: external ears normal and TM's abnormal bilaterally ( Moderate erythema, bulging, and cloudy yellow fluid in left ear) Face/Nose/Sinus: Normal external nose present and nares abnormal ( mild erythema and edema noted bilaterally) Face and sinus: normal facial exam and sinus tenderness ( bilateral) maxillary Mouth: Yes Normal oral and palatal mucosa present, Yes lip normal and Yes moist mucous membranes Throat: posterior oropharynx abnormal ( mild erythema, no edema or exudate) Neck: Neck: no lymphadenopathy Resp: Effort & Inspection: labored, tachypneic and uses accessory muscles Auscultation: no crackles, no rales, no rhonchi, no wheezes, breath sounds present and diminished lung sounds diffuse Other: tripod positioning. dry cough noted After nebulizer treatment continue diminished lung sounds diffusely with scattered wheezing. Cardio: Rate: regular rate Rhythm: regular rhythm Skin: General skin exam: normal color Rashes: no rashes Wounds: no wounds Neuro: General: patient oriented x3 and moves all extremities Speech: normal speech Gait exam (Neuro): Normal gait present Psych: Mental Status: mental status grossly normal Affect: normal affect Attitude: cooperative Course Course Level of Care: Express Care Visit Vital Signs Vital signs: Vital Signs Temperature 97.8 F 10/21/24 19:56 Pulse Rate 87 10/21/24 19:56 Respiratory Rate 20 10/21/24 19:56 Blood Pressure 148/95 H 10/21/24 19:56 Pulse Oximetry 95 10/21/24 19:56 Oxygen Delivery Room Air 10/21/24 19:56 Temperature 97.8 F 10/21/24 19:56 Pulse Rate 87 10/21/24 19:56 Respiratory Rate 20 10/21/24 19:56 Blood Pressure 148/95 H 10/21/24 19:56 Pulse Oximetry 95 10/21/24 19:56 Oxygen Delivery Room Air 10/21/24 19:56 MDM - URI/Sore Throat MDM Narrative Medical decision making narrative: labored breathing with tripoding will do DuoNeb while in Express care today. will use steroid inhaler, antibiotics, steroids, off medications for symptoms. Spoke with patient about smoking cessation. frequent coughing after nebulizer treatment but patient no longer in tripod position sitting up straight. Improved lung sounds. Discharge instructions reviewed with patient, as well as provided in writing per nursing staff. The instructions also include specific and strict return/GO TO THE ER as well as f/u information. All questions have been answered, and the patient deny any further questions with discharge and discharge plan. Differential Diagnosis Differential diagnosis: Likely upper respiratory infection, croup, otitis media, sinusitis, viral infection, bronchitis, influenza and pharyngitis Medical Records Attestation: I reviewed the patient's medical records. Discharge Plan Discharge Clinical Impression: Acute exacerbation of chronic obstructive pulmonary disease Patient Disposition: Home Condition: Stable Instructions: Antibiotic Form, COPD (Chronic Obstructive Pulmonary Disease) (ED), Chronic Lung Disease and Infection Prevention (ED) Additional Instructions: Take the antibiotics until they are gone. Take the steroids as directed. Use the cough medications as needed. Also recommended using Mucinex, Flonase, and other [id number]-hsbvvlr medications for your symptoms. Continue using her albuterol inhaler as needed for shortness of breath, cough, or wheezing. I have also sent in a steroid inhaler for you to use scheduled daily. Ensure to rinse her mouth out after using this inhaler. Typically will need this for 2-4 weeks but some patients do need this every day. Speak with your primary care physician about need for this daily. If you began to have fevers, continued shortness of breath, worsening symptoms, or do not improve go to the emergency room for further evaluation of symptoms. Patient Language: Amharic Prescriptions: New prednisone 10 mg tablet 10 mg PO DIRECTED Qty: 18 0RF Rx Instructions: Take 3 tablets for 3 days, 2 tablets for 3 days, 1 tablet for 3 days. codeine-guaifenesin [Guaifenesin AC] 10-100 mg/5 mL liquid 5 ml PO Q6H PRN (Reason: cough) Qty: 120 0RF budesonide-formoterol [Symbicort] 160-4.5 mcg/actuation HFA aerosol inhaler 2 puff inhalation Q12H Qty: 10.2 0RF doxycycline monohydrate 100 mg capsule 100 mg PO BID Qty: 20 0RF No Action alprazolam 1 mg Tablet 1 mg PO TID ramelteon 8 mg tablet 8 mg PO DAILY trazodone 100 mg tablet 100 mg PO BID methocarbamol 750 mg tablet 750 mg PO Q8H PRN (Reason: muscle pain/spasm) Qty: 30 0RF fluticasone propionate [Flonase Allergy Relief] 50 mcg/actuation spray,suspension 1 spray intranasal BID Qty: 16 0RF Rx Instructions: administer into each nostril celecoxib 200 mg capsule oxcarbazepine 600 mg tablet zolpidem 5 mg tablet cyclobenzaprine 5 mg tablet hydrochlorothiazide 12.5 mg tablet atorvastatin 20 mg tablet 20 mg PO DAILY aripiprazole 20 mg tablet 20 mg PO DAILY bupropion HCl 300 mg tablet extended release 24 hr 300 mg PO DAILY lisinopril 10 mg tablet 20 mg PO DAILY ergocalciferol (vitamin D2) 1,250 mcg (50,000 unit) capsule 1,250 mcg PO WEEKLY Follow-up/Referrals: Grzegorz,MD Martell [Primary Care Provider] - (1 week ) Time of Disposition: 20:26
[2024-10-21] MEDS: IPRATROPIUM 0.5 MG/ALBUTEROL SULFATE 2.5 MG AMPUL.NEB 3 ML INHALATION (20:06)
[2024-10-21 20:18] VITALS: PULSE 98; RESP 24; O2SAT 95
== END 2024-10-21 20:35 | disposition home or self-care (01) ==
PROVIDERS: Emergency Provider Nurse Practitioner Family; PCP Hospitalist
DX: J44.1 Chronic obstructive pulmonary disease with (acute) exacerbation (principal); I10 Essential (primary) hypertension; F17.210 Nicotine dependence, cigarettes, uncomplicated; Z79.899 Other long term (current) drug therapy
CPT/HCPCS: 94640; 99213; G0463

== ENCOUNTER 2024-11-15 11:09 | Emergency (ER) | payer MEDICARE, SELFPAY ==
--- NOTE | ~2024-11-15 | XR_ITS ---
EXAMINATION: XR chest 2V 11/15/2024 12:02 INDICATION: Cough for 3 weeks PROCEDURE: 2 view chest COMPARISON: 03/23/2023 FINDINGS: The lungs are clear. The cardiomediastinal silhouette is within normal limits. There are no pleural effusions. There is no pneumothorax suspected. IMPRESSION: 1: NO ACUTE CARDIOPULMONARY DISEASE. Reviewed, dictated and finalized at location A.
[2024-11-15 11:19] VITALS: BP 148/76; PULSE 87; RESP 18; TEMP 36.3; O2SAT 98
--- NOTE | 2024-11-15 11:19 | ED_ITS ---
HPI - URI/Sore Throat General Chief Complaint: Upper Respiratory Infection Stated Complaint: Ear Pain/Sore Throat/Mouth Sore Time Seen by Provider: 11/15/24 11:27 History of Present Illness HPI Narrative: 64 y/o female with hx COPD presented for c/o bilateral ear pain for one week, and reports a sore inside the mouth worsening for a few weeks. States she did not have the sore prior to using the new inhaler prescribed last visit for similar symptoms (Symbicort 10/21). Pt states I don't feel good. Endorses generalized weakness, not sleeping well, and unable to eat due to the mouth sore. Pt has a dental appointment today which she canceled due to 'not feeling good.' Denies increase in cough, sob, chest pain, n/v/d/f/c. Has not f/u with pcp since last visit. Smoker x40 years, down to a few cigarettes/day. Related Data Home Medications ?Medication ?Instructions ?Recorded ?Confirmed ?Last Taken ?Type alprazolam 1 mg tablet 1 mg PO TID 04/24/19 04/22/23 Unknown History aripiprazole 20 mg tablet 20 mg PO DAILY 09/24/22 04/22/23 Unknown History atorvastatin 20 mg tablet 20 mg PO DAILY 09/24/22 04/22/23 Unknown History bupropion HCl 300 mg 24 hr tablet, 300 mg PO DAILY 09/24/22 04/22/23 Unknown History extended release lisinopril 10 mg tablet 20 mg PO DAILY 09/24/22 04/22/23 Unknown History ergocalciferol (vitamin D2) 1,250 1,250 mcg PO WEEKLY 02/26/23 04/22/23 Unknown History mcg (50,000 unit) capsule ramelteon 8 mg tablet 8 mg PO DAILY 04/22/23 04/22/23 Unknown History trazodone 100 mg tablet 100 mg PO BID 04/22/23 04/22/23 Unknown History celecoxib 200 mg capsule mg 10/21/24 Unknown History cyclobenzaprine 5 mg tablet mg 10/21/24 Unknown History hydrochlorothiazide 12.5 mg tablet mg 10/21/24 Unknown History zolpidem 5 mg tablet mg 10/21/24 Unknown History Allergies Allergy/AdvReac Type Severity Reaction Status Date / Time acetaminophen (From Vicodin) Allergy Unknown unknown Verified 06/28/25 19:56 hydrocodone (From Vicodin) Allergy Unknown unknown Verified 10/21/24 19:56 Penicillins Allergy Unknown Unknown Verified 10/21/24 19:56 vancomycin Allergy Unknown SWELLED Verified 10/21/24 19:56 UP tramadol AdvReac Unknown Itching Verified 10/21/24 19:56 Review of Systems 2 Review of Systems: CONSTITUTIONAL: Reports weakness Denies body aches, fever, chills, or sweats. EYES: Denies visual changes, redness, or discharge. ENT: reports mouth pain otalgia Denies rhinorrhea, congestion CARDIOVASCULAR: Denies chest pain, palpitations, or edema. RESPIRATORY: Denies dyspnea. GASTROINTESTINAL: Denies abdominal pain, nausea, vomiting, or diarrhea. SKIN: Denies rash NEUROLOGIC: Denies headache PMFSH Past Medical History Medical History Bipolar disorder Anxiety and depression Elevated cholesterol Hypertension Surgical History Surgical History H/O sinus surgery Hx laparoscopic cholecystectomy H/O tubal ligation Social History Social History Smoking packs per day: 0.5 Smoking cigarettes per day: 10.0 Years smoked: 40 Smoking pack-years: 20.00 Smoking status: Current every day smoker Tobacco type: cigarettes Alcohol intake: unknown Substance use: unknown Gender identity (if verbalized by the patient): Female Exam 2 Narrative: GENERAL: well-appearing, no acute distress. EYES: conjunctivae clear ENT: Mucous membranes moist. TMs pearly maria with normal light reflex bilaterally; no tragal tenderness. Oropharynx not erythematous. Round ulcer lesion to left lower mandible/tongue junction; yellow wound bed approx 0.5cm diameter, no bleeding. No drooling, no hoarseness, no trismus, uvula midline. No tripod positioning, hot potato voice, or soft palate swelling. NECK: Supple. No lymphadenopathy CHEST: Clear to auscultation, breath sounds equal. No respiratory distress, speaks in full sentences. HEART: Regular rate and rhythm. No murmur heard. SKIN: Warm, dry, no rash. NEURO: Alert and oriented x3. HENMT: Teeth image: 1. area of ulceration Course Course Emergency Course: Patient is aware of diagnosis, understands and agrees to treatment plan. Anticipatory guidance given. Patient agrees to follow-up as directed and is aware of reasons to seek care at the emergency department. Portions of this record may have been created with voice recognition software Level of Care: Express Care Visit MDM - URI/Sore Throat MDM Narrative Medical decision making narrative: negative flu, covid results reviewed with pt. Pt initially denied change in cough however while discussing test results, she states she has been coughing x3 weeks, productive of sputum. Given the malaise will obtain CXR. Reviewed results of CXR with pt. NAD. Pt rescheduled dentist appointment for tomorrow. Discussed importance of keeping appt due to her smoking history and mouth ulcer. Pt continues to report 'not feeling well and weakness.' Caregiver requesting medication for 'weakness,' advised pcp f/u, supportive measures vs ER transfer for further evaluation. Discussed at length possible etiologies of these symptoms which may require additional testing. Shared decision making pt will dc home, RX lidocaine for the mouth ulcer. No indication for additional antibiotic at this time. No otitis noted on exam. Patient is appropriate for outpatient treatment and follow-up. Reviewed s/s to go to the ER. Differential Diagnosis Differential diagnosis: Likely upper respiratory infection, viral infection and pharyngitis Imaging Data Radiologist's impression: Patient: Linda Cates : 1960 MR#: [id number] Age: 64 Acct:[id number] Loc: [facility] ADM Date: 11/15/24Attending Dr: EXAMINATION: XR chest 2V 11/15/2024 12:02 INDICATION: Cough for 3 weeks PROCEDURE: 2 view chest COMPARISON: 03/23/2023 FINDINGS: The lungs are clear. The cardiomediastinal silhouette is within normal limits. There are no pleural effusions. There is no pneumothorax suspected. IMPRESSION: 1: NO ACUTE CARDIOPULMONARY DISEASE. Discharge Plan Discharge Clinical Impression: Oral ulcer, Otalgia of both ears, Bronchitis Patient Disposition: Home Condition: Stable Instructions: Antibiotic Form, Acute Bronchitis (ED), Earache (ED), Gingivostomatitis (ED) Additional Instructions: Cough: Recommend Flonase spray and Zyrtec (or Claritin/Melita) if you have nasal congestion/drainage over the counter Cough syrup may cause drowsiness; avoid driving or take it at night time. Coricidin HBP if you have hypertension Tylenol every 8 hours as needed for pain Symptomatic treatment includes: rest, push fluids, and increase humidity of the air at home. Mouth sores: Tylenol every 8 hours as needed for pain Avoid foods that irritate your mouth. These may include nuts, chips, pretzels, certain spices, salty foods and acidic fruits, such as pineapple, grapefruit and oranges. Regular brushing after meals and flossing once a day can keep your mouth clean and free of foods that might trigger a sore. Use a soft brush to help prevent irritation to delicate mouth tissues, and avoid toothpastes and mouth rinses that contain sodium lauryl sulfate Soft foods, cool liquids, warm tea. Gargle with warm saltwater twice a day. Rest and stay hydrated. Liquid lidocaine as directed Follow up with your primary care provider in 3 days. Call today to schedule an appointment. Go to the ER for worsening symptoms or concerns Patient Language: Indonesian Prescriptions: New lidocaine HCl [Lidocaine Viscous] 2 % solution 1 applic mucous membrane TID PRN (Reason: pain) Qty: 100 0RF Rx Instructions: apply with cotton swab to site of pain No Action alprazolam 1 mg Tablet 1 mg PO TID ramelteon 8 mg tablet 8 mg PO DAILY trazodone 100 mg tablet 100 mg PO BID methocarbamol 750 mg tablet 750 mg PO Q8H PRN (Reason: muscle pain/spasm) Qty: 30 0RF fluticasone propionate [Flonase Allergy Relief] 50 mcg/actuation spray,suspension 1 spray intranasal BID Qty: 16 0RF Rx Instructions: administer into each nostril celecoxib 200 mg capsule zolpidem 5 mg tablet cyclobenzaprine 5 mg tablet hydrochlorothiazide 12.5 mg tablet codeine-guaifenesin [Guaifenesin AC] 10-100 mg/5 mL liquid 5 ml PO Q6H PRN (Reason: cough) Qty: 120 0RF budesonide-formoterol [Symbicort] 160-4.5 mcg/actuation HFA aerosol inhaler 2 puff inhalation Q12H Qty: 10.2 0RF atorvastatin 20 mg tablet 20 mg PO DAILY aripiprazole 20 mg tablet 20 mg PO DAILY bupropion HCl 300 mg tablet extended release 24 hr 300 mg PO DAILY lisinopril 10 mg tablet 20 mg PO DAILY ergocalciferol (vitamin D2) 1,250 mcg (50,000 unit) capsule 1,250 mcg PO WEEKLY Follow-up/Referrals: Grzegorz,MD Martell [Primary Care Provider] - Time of Disposition: 12:16
--- OUTSIDE RECORDS SUMMARY | 2024-11-15 11:23 | XMS_ITS | Patient Health Record ---
Author Organization [facility] Address [address] [place] [address] Care Team Providers Care Wash Operator Name Role Phone Vikram Rey Unavailable [phone] Reason For Referral No Information Medications Medication SIG (Take, Route, Frequency, Duration) Notes Start Date End Date Status Vraylar 1.5 mg Oral 12/01/2018 Acti ve Dicyclomine HCl 20 MG Oral 12/01/2018 Active Ranitidine HCl 150 MG Oral 12/01/2018 Active Cyclobenzaprine HCl 10 MG Oral 12/01/2018 Active DILTIAZEM 24HR ER 180 mg Oral *Reorder from [facility] for eRx and Interaction Alerts* 12/01/2018 Active dilTIAZem HCl ER Coated Beads 240 MG Oral 12/01/2018 Active ALPRAZolam 1 MG Oral 12/01/2018 Act hallie Acetaminophen-Codeine #3 300-30 MG Oral 12/01/2018 Active QUEtiapine Fumarate 300 MG Oral 12/01/2018 Active Plan Of Treatment No Information Insurance Providers Payer Name Payer Address Payer Phone Subscriber Number Group Number Insured Name Patient Relationship to Insured Coverage Start Date Coverage End Date Medicare-I l Medicare [address] [place] [address] [id number] CARLO PEARSONA Self - patient is the insured Medicaid-I l Medicaid [address] [address] [place] [address] [id number] HANNAH PEARSON Self - patient is the insured Medical (General) History Surgical History Surgery Date(Month/Year) Removal of gallbladder (94700)
--- OUTSIDE RECORDS SUMMARY | 2024-11-15 11:23 | XMS_ITS | Clinical Summary ---
Author Organization [facility] Address [address] [place] [address] Phone Care Team Providers Care Damper Fitter Name Role Phone Martell Lantigua MD Primary Care Provider [phone] Allergies Active Allergy Reactions Criticality Noted Date [...] naloxone HCl (Narcan) 4 MG/0.1ML Liquid 1 [place] by Nasal route as needed for Opioid [...] Comments Blood Pressure 132/96 05/13/2023 8:28 AM DIRECTOR WRITING Pulse 92 05/13/2023 8:28 AM DIRECTOR WRITING Temperature 36.2 C (97.1 F) 05/13/2023 8:28 AM DIRECTOR WRITING Respiratory Rate 16 05/13/2023 8:28 AM DIRECTOR WRITING Oxygen Saturation 97% 05/13/2023 8:28 AM DIRECTOR WRITING Inhaled Oxygen Concentration - - Weight 122.5 kg (270 lb) 05/13/2023 8:28 AM DIRECTOR WRITING Height 175.3 cm (5' 9) 05/13/2023 8:28 AM DIRECTOR WRITING Body Mass Index 39.87 05/13/2023 8:28 AM DIRECTOR WRITING Plan of Treatment Health Maintenance Due Date Last Done Comments Hepatitis C Virus (HCV) Screening 1960 TdaP Immunization 1960 Pneumococcal Immunization (5 0+ years) (1 of 2 - PCV) 01/07/1980 Pap Smear 1982 Cervical Cancer Screening (CCS) 1991 HPV/Cotest 1991 Cologuard 2006 Colonoscopy 2006 Colorectal Cancer Screening 2006 Immunochemical Fecal Occult Blood 2006 Zoster Immunization (1 of 2) 2011 Mammogram 02/05/2021 02/06/2020, 07/06/2018 SARS-COV-2 Immunization ( season) 2023 Influenza Immunization (#1) 12/25/202412/26, 02/05/2020, 01/02/2019 Respiratory Syncytial Virus (RSV) Immunization (Adult) (1 - 1-dose 75+ series) 01/07/2036 Hepatitis B Immunization Aged Out No longer eligible based on patient's age to complete this topic Human Papillomavirus (HPV) Immunization Aged Out No longer eligible b ased on patient's age to complete this topic Meningococcal Immunization (ACWY) Aged Out No longer eligible b ased on patient's age to complete this topic Rotavirus Immunization Aged Out No lo nger eligible based on patient's age to complete this topic Procedures Procedure Name Priority Date/Time Associated Diagnosis Comments IMAN SCREENING BILATERAL DIGITAL W CAD Routine 07/06/2018 [...] dated: 07/01/2011, 06/15/2011, 06/02/2011, and 10/21/2010 [facility]. BREAST TISSUE:The tissue of both breasts [...] signed by: Donaldo Fields M.D. mmd/:07/06/2018 16:05:24 Stationary Engineer Refrigeration: Bailey Gross (R)), [facility] letter sent: Normal Exam Reading location: [facility] BI-RADS: 2 Benign Procedure Note Donaldo [...] exams dated: 07/01/2011, 06/15/2011, 06/02/2011, and 10/21/2010 [facility]. BREAST TISSUE:The tissue of both breasts [...] signed by: Donaldo Fields M.D. mmd/:07/06/2018 16:05:24 Stationary Engineer Refrigeration: Bailey Piper(Romi)(Lemuel), [facility] letter sent: Normal Exam Reading location: [facility] BI-RADS: 2 Benign Brittany Watkins APRN, JAISON IMG MAMMO ORDERABLES Fin al Result from Last 3 Months or Most Recently Relevant to Health Maintenance Insurance MEDICARE C [facility] Care Teams Damper Fitter Relationship Specialty Start Date End Date Martell Lantigua MD [address] [place] [address] PCP - General Family Medicine 03/25/23
--- OUTSIDE RECORDS SUMMARY | 2024-11-15 11:23 | XMS_ITS | Clinical Summary ---
Author Organization [facility] Address [address] [place] [address] Care Team Providers Care Cottage Supervisor Name Role Phone Martell Chino MD Primary Care Provider [phone] Allergies Active Allergy Reactions Criticality Noted Date [...] HFA (PROVENTIL HFA,VENTOLIN HFA,PROAIR HFA) 90 mcg/actuation inhalerIndicati ons:Viral upper respiratory tract infection with cough USE TWO (2) PUFF(S) EVERY FOUR (4) HOURS NEEDED WHEEZING OR SHORTNESS OF BREATH 8.5 g 3 05/01/19 23 Active cyanocobalamin (Vitamin B-12) 1,000 mcg/mL injection Inject 1,000 mcg as directed every 14 (fourteen) days 3 mL 1 02/16/20 23 Active naltrexone (DEPADE) 50 mg tabletIndicatio ns:Impulse Control Disorder Take 1 tablet (50 mg total) by mouth daily 30 tablet 2 04/01/20 23 Active Additional Information Patient not taking.Reported on 09/13/2024 naloxone (NARCAN) 4 mg/actuation spray,non-aeros ol Administer 1 spray into affected nostril(s) as needed for opioid reversal or respiratory depression Call 911. Administer a single spray in one nostril. Repeat every 3 minutes as needed if no or minimal response. 2 each 05/28/19 24 Active Additional Information Patient not taking.Reported on 09/13/2024 lisinopriL (PRINIVIL,ZESTR IL) 10 mg tablet TAKE TWO (2) TABLETS (20 MG TOTAL) BY MOUTH DAILY 180 tablet 3 10/21/19 24 Active suvorexant (BELSOMRA) 10 mg tabletIndicatio ns:Insomnia Take 1 tablet (10 mg total) by mouth nightly as needed (insomnia) 30 tablet 2 03/20/20 24 Active Trelegy Ellipta 100-62.5-25 mcg inhaler USE ONE (1) PUFF(S) DAILY BY INHALATION ROUTE 60 each 2 04/13/20 24 Active dilTIAZem XR (dilTIAZem CD) 240 mg 24 hr capsule Take 1 capsule (240 mg total) by mouth daily 90 capsule 3 04/14/20 24 025 Active hydroCHLOROthia zide 12.5 mg tablet Take 1 tablet (12.5 mg total) by mouth daily 90 tablet 3 04/14/20 24 025 Active ergocalciferol (VITAMIN D) 50,000 unit capsule Take 1 capsule (50,000 Units total) by mouth once a week 12 capsule 3 04/17/20 24 025 Active atorvastatin (LIPITOR) 20 mg tablet TAKE ONE (1) TABLET (20 MG TOTAL) BY MOUTH DAILY 30 tablet 5 05/09/19 25 Active fluticasone propionate (FLONASE) 50 mcg/actuation nasal spray 2 sprays 05/10/19 25 Active doxycycline hyclate 100 mg capsule 1 tablet/capsule (100 mg total) 05/10/19 25 Active ARIPiprazole (ABILIFY) 20 mg tablet TAKE ONE (1) TABLET (20 MG TOTAL) BY MOUTH DAILY 90 tablet 06/01/19 25 Active ondansetron (ZOFRAN) 4 mg tablet 1 tablet (4 mg total) 06/01/19 25 Active benzonatate (TESSALON) 100 mg capsuleIndicati ons:Cough Take 1 capsule (100 mg total) by mouth 3 (three) times a day as needed for cough 30 capsule 06/06/19 25 Active ARIPiprazole (ABILIFY) 30 mg tabletIndicatio ns:Bipolar Disorder Take 1 tablet (30 mg total) by mouth daily 30 tablet 2 08/23/19 25 Active buPROPion XL (WELLBUTRIN XL) 300 mg 24 hr tabletIndicatio ns:Depression associated with Bipolar Disorder TAKE 1 TABLET (300 MG TOTAL) BY MOUTH EVERY MORNING 30 tablet 2 09/05/19 25 Active zolpidem (AMBIEN) 5 mg tabletIndicatio ns:Sleep-Onset Insomnia Take 1 tablet (5 mg total) by mouth nightly as needed for sleep 30 tablet 2 09/06/19 25 Active ALPRAZolam (XANAX) 1 mg tablet TAKE 1 TABLET (1 MG TOTAL) BY MOUTH THREE (3) TIMES a DAY NEEDED FOR ANXIETY 2.20 90 tablet 2 09/08/19 25 Active cyclobenzaprine (FLEXERIL) 5 mg tablet Take 1 tablet (5 mg total) by mouth 3 (three) times a day as needed for muscle spasms 30 tablet 09/14/19 25 Active OXcarbazepine (TRILEPTAL) 600 mg tablet TAKE ONE (1) TABLET BY MOUTH TWICE DAILY 60 tablet 2 10/06/19 25 Active celecoxib (CeleBREX) 200 mg capsule TAKE 1 CAPSULE (200 MG TOTAL) BY MOUTH TWO (2) (TWO) TIMES a DAY 60 capsule 10/06/19 25 Active hydrOXYzine (ATARAX) 25 mg tabletIndicatio ns:anxiety TAKE 1 TABLET (25 MG TOTAL) BY MOUTH EVERY 8 (EIGHT) HOURS NEEDED FOR ANXIETY 60 tablet 2 11/15/19 25 Active hydrOXYzine (ATARAX) 25 mg tabletIndicatio ns:anxiety TAKE 1 TABLET (25 MG TOTAL) BY MOUTH EVERY 8 (EIGHT) HOURS NEEDED FOR ANXIETY 60 tablet 2 06/06/19 25 025 Discontinued nystatin 100,000 unit/mL suspension Take 5 mL (500,000 Units total) by mouth 4 (four) times a day Swish in mouth and spit out. 280 mL 08/31/19 25 025 Active Problems Problem Noted Date Diagnosed Date Chronic bilateral low back pain with right-sided sciatica 09/13/2024 Assessment & Plan (09/13/2024 1:32 PM CDT): Will initiate Medrol Dosepak and p.r.n. Flexeril. Recommend continued conservative measures with ice, heat, gentle stretching. Will also place order for physical therapy. If worsening or not resolving RTC. Red flags reviewed as well. She is in agreement with plan and states understanding. Acute cough 06/06/2024 Nausea 06/06/2024 Weakness 06/06/2024 Hyperlipidemia 06/06/2024 Shortness of breath 04/14/2024 Palpitations 04/14/2024 Chest pain 04/14/2024 Fatigue 04/14/2024 Vitamin D deficiency 04/14/2024 Screening for lipid disorders 04/14/2024 Screening for diabetes mellitus 04/14/2024 Screening for lung cancer 04/14/2024 Need for hepatitis B screening test 04/14/2024 Morbid obesity with BMI of 40.0-44.9, adult 03/27 Assessment & Plan (06/06/2024 7:35 PM MACHINE PIE MAKER): BMI 41.78. Patient did not wish to discuss diet and exercise. Assessment & Plan (04/14/2024 3:59 PM MACHINE PIE MAKER): BMI 42.40. Discussed making dietary changes, trying to make healthier food choices including portion control. Encourage moderate intensity exercise 30 minutes 5 days per week. Recommend weight loss Left wrist tendonitis 06/29/2023 Assessment & Plan (06/29/2023 3:11 PM MACHINE PIE MAKER): Not well controlled; continues to have significant [...] 05/14/2021 Assessment & Plan (06/06/2024 7:37 PM MACHINE PIE MAKER): Stable. She has an appointment with her [...] 12/27/2020 Assessment & Plan (06/06/2024 7:35 PM MACHINE PIE MAKER): She does have her albuterol HFA inhaler for p.r.n. use and has not used it recently. Assessment & Plan (06/29/2023 3:11 PM MACHINE PIE MAKER): Stable, well controlled, breathing is improved; patient [...] p.r.n. Assessment & Plan (04/01/2021 4:10 PM MACHINE PIE MAKER): Stable, well controlled; continue albuterol p.r.n., Trelegy Ellipta 1 puff daily Assessment & Plan (12/27/2020 3:56 PM CDT): Stable; continue Trelegy Ellipta daily Moderate tobacco use disorder 07/30/2020 Assessment & Plan (04/14/2024 3:56 PM MACHINE PIE MAKER): Patient has been reducing the amount she smokes with a goal of quitting on 04/26/2024. Encouraged smoking cessation. Assessment & Plan (06/29/2023 3:11 PM MACHINE PIE MAKER): Stable, improving, down to 2 cigarettes per [...] use Assessment & Plan (04/01/2021 4:10 PM MACHINE PIE MAKER): Continues to smoke regularly; encouraged discontinuation Assessment [...] 02/22/2020 Assessment & Plan (02/29/2020 11:43 AM MACHINE PIE MAKER): Improving, no evidence of cardiac or vascular [...] 30 day monitor. If it does not cotton picker operator anything then cardiology recommends to implant loop recorder in the near future. Advised to avoid dangerous activities like driving, climbing, swimming until this is resolved. HTN (hypertension) 02/22/2020 Assessment & Plan (06/06/2024 7:36 PM MACHINE PIE MAKER): BP 138/88, stable despite being off of her blood pressure medications for several weeks. Assessment & Plan (06/29/2023 3:09 PM MACHINE PIE MAKER): Stable, well controlled, blood pressure at goal; continue diltiazem 240 mg daily, lisinopril 10 mg daily Assessment & Plan (06/23/2022 1:23 PM MACHINE PIE MAKER): Stable, well controlled; continue lisinopril 10 mg [...] daily Assessment & Plan (04/01/2021 4:08 PM MACHINE PIE MAKER): Stable, well controlled; blood pressure at target [...] 2021 Assessment & Plan (02/29/2020 11:44 AM MACHINE PIE MAKER): Continue to observe for symptoms, repeat CT [...] 02/13/2020 Assessment & Plan (06/23/2022 1:22 PM MACHINE PIE MAKER): Not well controlled, weight is mildly up [...] changes Assessment & Plan (04/01/2021 4:08 PM MACHINE PIE MAKER): Stable, not well controlled Continue to encourage [...] currently depressed, moderate 02/05/2020 Assessment & Plan (09/13/2024 1:31 PM CDT): Following closely with Psychiatry and will continue to do so. Assessment & Plan (06/06/2024 7:38 PM MACHINE PIE MAKER): Currently off her medications. She is to contact her psychiatrist SELENE. Assessment & Plan (06/29/2023 3:10 PM MACHINE PIE MAKER): Not currently well controlled, has significant depression; mostly due to decreased physical activity due to left hand injury Continues to have significant limitations in regular activities Follows with psychiatry for management Continue Xanax p.r.n.; Abilify 20 mg daily, bupropion 300 mg daily, oxcarbazepine 600 mg b.i.d. Assessment & Plan (06/23/2022 1:21 PM MACHINE PIE MAKER): Not well controlled, multiple stressors; patient reports [...] services Assessment & Plan (04/01/2021 4:10 PM MACHINE PIE MAKER): Not well controlled, has improved stressors but [...] assistance Assessment & Plan (02/29/2020 11:44 AM MACHINE PIE MAKER): Not controlled, patient reports high levels of [...] 02/05/2020 Assessment & Plan (06/23/2022 1:23 PM MACHINE PIE MAKER): Likely GERD; will continue with treatment; patient [...] (05/27/2020): Note: per ct scan done at [facility] 08-22-[address] Resolved Problems Problem Noted Date Diagnosed Date Resolved Date Opioid withdrawal 08/31/2017 02/05/2020 Alcohol withdrawal syndrome without complication 08/30/2017 08/31/2017 Blackout spell 02/29/2020 Encounters Date Type Department Care Team Description 11/13/2024 Nurse Triage [facility] [address] [phone] Martell Chino MD 11/13/2024 Nurse Triage [facility] [address] [phone] Carey Kirby RN 11/01/2024 Telephone [facility] [address] [phone] Martell Chino MD 09/19/2024 Telephone [facility] [address] [phone] Martell Chino MD 09/13/2024 1:00 PM CDT Office Visit [facility] [address] [phone] Ashly Mejia, EMELY Chronic bilateral low back pain with right-sided sciatica (Primary Dx); Bipolar affective disorder, currently depressed, moderate (HCC); Class 3 severe obesity due to excess calories with serious comorbidity and body mass index (BMI) of 40.0 to 44.9 in adult 09/13/2024 Telephone [facility] [address] [phone] Martell Chino MD Medical Question/Miscellaneo us 09/12/2024 Nurse Triage [facility] [address] [phone] Ayah Grimes RN 09/12/2024 Nurse Triage [facility] [address] [phone] Margarita Cortez, ANGEL 09/05/2024 2:00 PM CDT Telemedicine [facility] [address] [facility] [address] [phone] Maicol Dee MD Bipolar affective disorder, currently depressed, moderate (HCC) (Primary Dx); Generalized anxiety disorder 08/30/2024 Telephone [facility] [address] [phone] Martell Chino MD Symptom Based Call 08/22/2024 9:45 AM CDT Telemedicine [facility] [address] [facility] [address] [place] [address] Maicol Dee MD Bipolar affective disorder, currently depressed, moderate (HCC) (Primary Dx); Generalized anxiety disorder from Last 3 Months Immunizations Immunization Administration Dates Next Due Influenza, Quadrivalent, Spl it, Preservative Free, Intramuscular 01/16/2022,02/05/2020 Influenza, Trivalent, Preser vative Free, Intramuscular 01/02/2019 Influenza, Unspecified 09/13/2024(Deferr ed: Patient Refused),07/13/2024(Deferred: Patient Refused),06/05/2024(Deferred: Patient Refused),05/25/2024(Deferred: Patient Refused),05/16/2024(Deferred: Patient Refused),04/13/2024(Deferred: Patient Refused),04/11/2024(Deferred: Patient Refused),01/31/2024(Deferred: Patient Refused),01/31/2024(Deferred: Patient Refused),01/31/2024(Deferred: Patient Refused),01/31/2024(Deferred: Patient Refused),02/01/2023(Deferred: Patient Refused),02/01/2023(Deferred: Patient Refused),01/24/2023(Deferred: Patient Refused),03/14/2021(Deferred: Patient Refused),04/26/2020(Deferred: Patient Refused),04/26/2020(Deferred: Patient [...] Date Smoking Tobacco: Every Day Cigarettes 0.2 46.6 Started: 1977 Vaping Smokeless Tobacco: Never Tobacco [...] often do you attend chur ch or latter-day services? Never 06/11/2021 Do you belong to any clubs o r organizations such as latter day groups, unions, fraternal or athletic groups, or [...] place to sleep or slept in a [place] facility (including now)? No 06/11/2021 PHQ-9 Answer Date [...] on file Legal Sex Female 8:06 PM MACHINE PIE MAKER Gender Identity Not on file Sexual Orientation Not on file Obstetrics History Para Term AB IAB SAB Ectopic Multiple Livin g Live Births 3 3 3 Date Outcome GA Total Labor Labor/2nd/3rd Weight Sex Type Anes PTL Fe A1 A5 Name Clin Term Term Term Last Filed Vital Signs Vital Sign Reading Time Taken Comments Blood Pressure 134/84 09/13/2024 1:00 PM CDT Pulse 90 09/13/2024 1:00 PM CDT Temperature 36.7 C (98 F) 09/13/2024 1:00 PM CDT Respiratory Rate 22 09/13/2024 1:00 PM CDT Oxygen Saturation 96% 09/13/2024 1:00 PM CDT Inhaled Oxygen Concentration - - Weight 122.9 kg (271 lb) 09/13/2024 1:00 PM CDT Height 170.2 cm (5' 7.01) 09/13/2024 1:00 PM CD T Body Mass Index 42.43 09/13/2024 1:00 PM CDT Plan of Treatment Health Maintenance Due Date Last Done Comments Cervical Cancer Screening 1960 Regular Well Visit/Exam 18-64 1979 Colon Cancer Screening-Colonoscopy 10/10/2019 10/09/2014 Breast Cancer Screening-Mammogram 02/05/2021 02/06/2020, 02/06/2020, 07/06/2018, Additional history exists Depression Screening 06/28/2024 06/29/2023, 06/29/2023, 06/23/2022, Additional history exists Influenza Vaccine (#1) 2024 2, 02/05/2020, 01/02/2019 Pneumococcal vaccine <65 (1 of 2 - [...] Procedure Name Priority Date/Time Associated Diagnosis Comments HEPATITIS C ANTIBODY Routine 07/26/2020 2:14 PM CDT Essential hypertension SCREENING MAMMOGRAM BILATERAL W THIERRY Schedule Routine, Read Routine (OP Routine) 02/06/2020 10:40 AM CDT Encounter for screening mammogram for malignant neoplasm of breast Annual physical exam COLONOSCOPY 10/09/2014 12:00 AM CDT from Last 3 Months or Most Recently Relevant to Health Maintenance Results * Hepatitis C antibody (07/26/2020 2:14 PM [...] 2:14 PM CDT 07/26/2020 5:39 PM CDT us Martell Chino MD LAB MICROBIOLOGY - GENERA L ORDERABLES Final Result [facility] [address] Department [place] [address] * SCREENING MAMMOGRAM BILATERAL W THIERRY (02/06/2020 [...] no suspicious masses, calcifications, or architectural distortion. us Martell Chino MD IMG MAMMO PROCEDURES Danuta l Result * COLONOSCOPY (10/09/2014 12:00 AM CDT) Anatomical Region Laterality Modality Other Narrative 10/09/2014 12:00 AM CDT Ordered by an unspecified provider. Procedure Note Provider, MD Ney - 10/09/2014 12:00 AM CDT PROCEDURE REPORT Patient: HANNAH CATES Account: [id number] Room No: : 1960 [facility] Attend.: Srinivasan Ramirez M.D. Admit Date: 10/09/2014 [...] those records are not available to us. Srinivasan Ramirez M.D. Ralph TD: 10/09/2014 23:52 CC: Alonso Price M.D. Electronically Authenticated by: Srinivasan Ramirez MD On 10/11/2014 07:40 AM CDT us Historical Provider ENDOSCOPY PROCEDURES Danuta l Result from Last 3 Months or Most Recently Relevant to Health Maintenance Insurance MEDICARE UHC MEDICARE ADVANTAGE [employer] MEDICARE GOLD Advance Directives For more information, please contact: [phone] * Full Code (Latest Code Status on File) Date Activated Date Inactivated Comments 02/21/2020 7:51 PM 02/23/2020 3:22 PM * Full Code Date Activated Date Inactivated Comments 08/30/2017 1:26 PM 09/01/2017 4:14 PM Care Teams Cottage Supervisor Relationship Specialty Start Date End Date Martell Chino MD [address] [place] [address] PCP - General Family Medicine 02/05/20
--- OUTSIDE RECORDS SUMMARY | 2024-11-15 11:23 | XMS_ITS | Referral Summary ---
Author Organization [facility] Address [address] [place] [address] Care Team Providers Care Tomato Grader Name Role Phone Martell Chino MD Primary Care Provider [phone] Encounters Date Type Department Care Team Description 11/13/2024 Nurse Triage [facility] [address] [phone] Martell Chino MD 11/13/2024 Nurse Triage [facility] [address] [phone] Carey Kirby RN 11/01/2024 Telephone [facility] [address] [phone] Martell Chino MD 09/19/2024 Telephone [facility] [address] [phone] Martell Chino MD 09/13/2024 Telephone [facility] [address] [phone] Martell Chino MD Medical Question/Miscellaneo us 09/13/2024 1:00 PM CDT Office Visit [facility] [address] [phone] Ashly Mejia, EMELY Chronic bilateral low back pain with right-sided sciatica (Primary Dx); Bipolar affective disorder, currently depressed, moderate (HCC); Class 3 severe obesity due to excess calories with serious comorbidity and body mass index (BMI) of 40.0 to 44.9 in adult 09/12/2024 Nurse Triage [facility] [address] [phone] Ayah Grimes RN 09/12/2024 Nurse Triage [facility] [address] [phone] Margarita Cortez RN 09/05/2024 2:00 PM CDT Telemedicine [facility] [address] [facility] [address] [place] [phone] Maicol Dee MD Bipolar affective disorder, currently depressed, moderate (HCC) (Primary Dx); Generalized anxiety disorder 08/30/2024 Telephone [facility] [address] [phone] Martell Chino MD Symptom Based Call 08/22/2024 9:45 AM CDT Telemedicine [facility] [address] [facility] [address] [place] [phone] Maicol Dee MD Bipolar affective disorder, currently depressed, moderate (HCC) (Primary Dx); Generalized anxiety disorder from Last 3 Months Allergies Active Allergy [...] 14 (fourteen) days 3 mL 1 02/16/20 Active naltrexone (DEPADE) 50 mg tabletIndicatio ns:Impulse Control Disorder Take 1 tablet (50 mg total) by mouth daily 30 tablet 2 04/01/20 Active Additional Information Patient not taking.Reported on 09/13/2024 naloxone (NARCAN) 4 mg/actuation spray,non-aeros ol Administer 1 spray into affected nostril(s) as needed for opioid reversal or respiratory depression Call 911. Administer a single spray in one nostril. Repeat every 3 minutes as needed if no or minimal response. 2 each 05/28/19 Active Additional Information Patient not taking.Reported on 09/13/2024 lisinopriL (PRINIVIL,ZESTR IL) 10 mg tablet TAKE TWO (2) TABLETS (20 MG TOTAL) BY MOUTH DAILY 180 tablet 3 10/21/19 Active suvorexant (BELSOMRA) 10 mg tabletIndicatio ns:Insomnia Take 1 tablet (10 mg total) by mouth nightly as needed (insomnia) 30 tablet 2 03/20/20 Active Trelegy Ellipta 100-62.5-25 mcg inhaler USE [...] 50 mcg/actuation nasal spray 2 sprays 05/10/19 Active doxycycline hyclate 100 mg capsule 1 [...] 03/27 Assessment & Plan (06/06/2024 7:35 PM ASSOCIATE MERCHANDISE PLANNER): BMI 41.78. Patient did not wish to discuss diet and exercise. Assessment & Plan (04/14/2024 3:59 PM ASSOCIATE MERCHANDISE PLANNER): BMI 42.40. Discussed making dietary changes, trying to make healthier food choices including portion control. Encourage moderate intensity exercise 30 minutes 5 days per week. Recommend weight loss Left wrist tendonitis 06/29/2023 Assessment & Plan (06/29/2023 3:11 PM ASSOCIATE MERCHANDISE PLANNER): Not well controlled; continues to have significant [...] 05/14/2021 Assessment & Plan (06/06/2024 7:37 PM ASSOCIATE MERCHANDISE PLANNER): Stable. She has an appointment with her [...] 12/27/2020 Assessment & Plan (06/06/2024 7:35 PM ASSOCIATE MERCHANDISE PLANNER): She does have her albuterol HFA inhaler for p.r.n. use and has not used it recently. Assessment & Plan (06/29/2023 3:11 PM ASSOCIATE MERCHANDISE PLANNER): Stable, well controlled, breathing is improved; patient [...] p.r.n. Assessment & Plan (04/01/2021 4:10 PM ASSOCIATE MERCHANDISE PLANNER): Stable, well controlled; continue albuterol p.r.n., Trelegy Ellipta 1 puff daily Assessment & Plan (12/27/2020 3:56 PM CDT): Stable; continue Trelegy Ellipta daily Moderate tobacco use disorder 07/30/2020 Assessment & Plan (04/14/2024 3:56 PM ASSOCIATE MERCHANDISE PLANNER): Patient has been reducing the amount she smokes with a goal of quitting on 04/26/2024. Encouraged smoking cessation. Assessment & Plan (06/29/2023 3:11 PM ASSOCIATE MERCHANDISE PLANNER): Stable, improving, down to 2 cigarettes per [...] use Assessment & Plan (04/01/2021 4:10 PM ASSOCIATE MERCHANDISE PLANNER): Continues to smoke regularly; encouraged discontinuation Assessment [...] 02/22/2020 Assessment & Plan (02/29/2020 11:43 AM ASSOCIATE MERCHANDISE PLANNER): Improving, no evidence of cardiac or vascular [...] 30 day monitor. If it does not pickle processor anything then cardiology recommends to implant loop recorder in the near future. Advised to avoid dangerous activities like driving, climbing, swimming until this is resolved. HTN (hypertension) 02/22/2020 Assessment & Plan (06/06/2024 7:36 PM ASSOCIATE MERCHANDISE PLANNER): BP 138/88, stable despite being off of her blood pressure medications for several weeks. Assessment & Plan (06/29/2023 3:09 PM ASSOCIATE MERCHANDISE PLANNER): Stable, well controlled, blood pressure at goal; continue diltiazem 240 mg daily, lisinopril 10 mg daily Assessment & Plan (06/23/2022 1:23 PM ASSOCIATE MERCHANDISE PLANNER): Stable, well controlled; continue lisinopril 10 mg [...] daily Assessment & Plan (04/01/2021 4:08 PM ASSOCIATE MERCHANDISE PLANNER): Stable, well controlled; blood pressure at target [...] 2021 Assessment & Plan (02/29/2020 11:44 AM ASSOCIATE MERCHANDISE PLANNER): Continue to observe for symptoms, repeat CT [...] 02/13/2020 Assessment & Plan (06/23/2022 1:22 PM ASSOCIATE MERCHANDISE PLANNER): Not well controlled, weight is mildly up [...] changes Assessment & Plan (04/01/2021 4:08 PM ASSOCIATE MERCHANDISE PLANNER): Stable, not well controlled Continue to encourage [...] so. Assessment & Plan (06/06/2024 7:38 PM ASSOCIATE MERCHANDISE PLANNER): Currently off her medications. She is to contact her psychiatrist SELENE. Assessment & Plan (06/29/2023 3:10 PM ASSOCIATE MERCHANDISE PLANNER): Not currently well controlled, has significant depression; mostly due to decreased physical activity due to left hand injury Continues to have significant limitations in regular activities Follows with psychiatry for management Continue Xanax p.r.n.; Abilify 20 mg daily, bupropion 300 mg daily, oxcarbazepine 600 mg b.i.d. Assessment & Plan (06/23/2022 1:21 PM ASSOCIATE MERCHANDISE PLANNER): Not well controlled, multiple stressors; patient reports [...] services Assessment & Plan (04/01/2021 4:10 PM ASSOCIATE MERCHANDISE PLANNER): Not well controlled, has improved stressors but [...] assistance Assessment & Plan (02/29/2020 11:44 AM ASSOCIATE MERCHANDISE PLANNER): Not controlled, patient reports high levels of [...] 02/05/2020 Assessment & Plan (06/23/2022 1:23 PM ASSOCIATE MERCHANDISE PLANNER): Likely GERD; will continue with treatment; patient [...] (05/27/2020): Note: per [facility] scan done at [facility] 29-[address] Resolved Problems [...] often do you attend chur ch or confucianism services? Never 06/11/2021 Do you belong to any clubs o r organizations such as christianity groups, unions, fraternal or athletic groups, or [...] place to sleep or slept in a retirement (including now)? No 06/11/2021 PHQ-9 Answer Date [...] on file Legal Sex Female 8:06 PM ASSOCIATE MERCHANDISE PLANNER Gender Identity Not on file Sexual Orientation [...] 09/13/2024 1:00 PM CDT Plan of Treatment Not on file Goals Goal Patient Goal Type Associated Problems Recent Progress Patient-Stated? Author DANNY General Goal - Patient is knowledgeable about condition when worsening and how to respond ACO Care Management Joesph Quintero, ANGEL Note: Problem: Knowledge deficit related to signs [...] GENERA L ORDERABLES Final Result YOHANNES LAUGHLIN [address] [address] Department [place] [address] * SCREENING MAMMOGRAM BILATERAL W THIERRY (02/06/2020 [...] CDT PROCEDURE REPORT Patient: HANNAH CATES Account: [id number] Room No: : 1960 Patient Type: [facility] Attend.: Srinivasan Ramirez M.D. Admit Date: 10/09/2014 [...] Ramirez MD On 10/11/2014 07:40 AM CDT Historical Provider MD ENDOSCOPY PROCEDURES Danuta l Result from Last 3 Months or Most Recently Relevant to Health Maintenance Insurance MEDICARE [facility] MEDICARE ADVANTAGE [employer] MEDICARE GOLD Advance Directives For more information, please contact: [phone] * Full Code (Latest Code Status on File) Date Activated Date Inactivated Comments 02/21/2020 7:51 PM 02/23/2020 3:22 PM * Full Code Date Activated Date Inactivated Comments 08/30/2017 1:26 PM 09/01/2017 4:14 PM Care Teams Tomato Grader Relationship Specialty Start Date End Date Martell Chino MD [address] [place] [address] PCP - General Family Medicine 02/05/20
[2024-11-15 11:54] LABS: EDCOVIDSCREEN Negative (Negative); EDINFLUASCREEN Negative (Negative); EDINFLUBSCREEN Negative (Negative)
== END 2024-11-15 12:25 | disposition home or self-care (01) ==
PROVIDERS: Emergency Provider Nurse Practitioner Family; PCP Hospitalist
DX: K12.1 Other forms of stomatitis (principal); H92.03 Otalgia, bilateral; J40 Bronchitis, not specified as acute or chronic; Z20.822 Contact with and (suspected) exposure to COVID-19; F17.210 Nicotine dependence, cigarettes, uncomplicated; I10 Essential (primary) hypertension; E78.00 Pure hypercholesterolemia, unspecified; F41.9 Anxiety disorder, unspecified; F32.A Depression, unspecified
CPT/HCPCS: 71046; 87426; 87804; 99213; G0463